=== PATIENT | female | born 1955 | race Caucasian/White ===

== ENCOUNTER 2023-08-01 10:56 | Inpatient (IN) | payer MEDICARE, SELFPAY ==
[2023-08-01] VITALS (16 sets, daily range): BP systolic 136–189; BP diastolic 73–98
[2023-08-01 08:12] LABS: % Basophils 0.8 % (0-2); % Eosinophils 2.5 % (0-6); % Immature Granulocytes 0.2 % (0-0.5); % Lymphocytes 52.2 % (20.5-51.1); % Monocytes 7.1 % (1.7-9.3); % Neutrophils 37.2 % (42.2-75.2); Absolute Basophils 0.1 10^3/uL (0-0.2); Absolute Eosinophils 0.2 10^3/uL (0-0.7); Absolute Lymphocytes 3.1 10^3/uL (1.2-3.4); Absolute Monocytes 0.4 10^3/uL (0.1-0.6); Absolute Neutrophils 2.2 10^3/uL (1.4-6.5); Hematocrit 37.1 % (37.0-47.0); Mean Corpuscular Hgb 30.6 pg (27.0-31.0); Mean Corpuscular Volume 87.3 fL (81.0-99.0); Mean Platelet Volume 8.8 fL (7.4-10.4); Nucleated Red Blood Cells % 0 %; Platelet Count 206 10^3/uL (130-400); Red Blood Cell Count 4.25 10^6/uL (4.20-5.40); White Blood Cell Count 5.9 10^3/uL (4.8-10.8)
[2023-08-01 08:26] LABS: ALT (SGPT) 33 U/L (0-35); AST (SGOT) 39 U/L (14-36); Albumin 4.6 g/dl (3.5-5.0); Alkaline Phosphatase 103 U/L (38-126); Blood Urea Nitrogen 15 mg/dl (7-17); Calcium 8.9 mg/dl (8.4-10.2); Carbon Dioxide 26 mmol/L (22-30); Chloride 106 mmol/L (98-107); Glucose 140 mg/dl (70-99); Potassium 4.1 mmol/L (3.5-5.1); Sodium 137 mmol/L (135-145); Total Bilirubin 1.3 mg/dl (0.2-1.3); Total Protein 7.6 g/dl (6.3-8.2); eGFR > 60.00
--- NOTE | 2023-08-01 08:31 | ED.GENMED ---
History of Present Illness
General
Chief Complaint: Weakness
Source: patient and family
Exam Limitations: none
Time Seen by Provider: 08/01/23 08:04
Travel History
Have you had any contact with someone who has COVID-19?: No
Do you have any symptoms of coronavirus? Fever > 100 degrees, chills, cough, shortness of breath, sore throat, loss of taste or smell, muscle aches, or headache?: No
History of Present Illness
History of Present Illness:
67-year-old female started with dizziness weakness generalized in nature some mild speech issues yesterday. However upon waking this morning symptoms were worse. Symptoms are nonfocal. No history of same. No one else is ill at home.
Past History
Past History
ED Past Medical History: GERD, Hypercholesterolemia and Other
ED Past Surgical History: Gynecological
Social History
Tobacco: Non-smoker
Alcohol: None
Personal:
Living: with family
Family History
Family History: Other
Review of Systems
Review of Systems
All Other Systems: Not applicable
Constitutional: Denies fever
Respiratory: Reports no symptoms
Cardiac: Reports no symptoms
ABD/GI: Denies abdominal pain
Phy Exam
Physical Exam
Physical Exam:
GENERAL: Alert and oriented. Generally weak appearing
EYE: Orbits normal. Extraocular muscles intact. No obvious nystagmus
NECK: Supple, no carotid bruit
ENT: Pharynx without erythema. No drooling or stridor
CARDIAC: Regular rate and rhythm without any obvious murmurs.
LUNGS: Clear breath sounds,normal
ABDOMEN: Soft, without focal tenderness or distention
NEUROLOGICAL: Alert and oriented , thank you generally weak. Will lift both arms up but drops both arms after a few seconds. Questionable increasing drift on the right arm. The same with both lower extremities. Light touch intact. [id number]
okay. Speech is moderately slurred
SKIN: Warm and dry, no rash or lesion, no discoloration, skin intact.
MUSCULOSKELETAL: No edema,no deformity.Good color
PSYCH: Normal and appropriate interaction.
Course
Orders/Labs/Results
Orders:
Orders
08/01/23 08:05
Complete Blood Count/With Diff Urgent
Comprehensive Metabolic Panel Urgent
Erythrocyte Sed Rate Urgent
Comment: ADD ON
Ferritin Urgent
Comment: ADD ON
Folate Urgent
Comment: ADD ON
TSH Reflex To Free T4 Urgent
Comment: ADD ON
Troponin I Urgent
Vitamin B12 Urgent
Comment: ADD ON
08/01/23 08:13
Electrocardiogram (*1) Stat
Reason for Study: Other
Other Reason for Exam: neuro symptoms
CT Head W/o Iv Contrast Urgent
Comment:
Reason For Exam: slurred speech. weakness
Cardiac Monitoring- Treatment ONCE
EKG- Treatment ONCE
IV Insert/Care/Rem.- Treatment PRN
Pulse Ox/cont/shift [RESP] Stat
Quantity: 1
08/01/23 08:42
Add On- LAB Urgent
Tests Added?: tsh reflex t4, esr
NEUROLOGY CONSULT Urgent
Consulting Provider: Heber Mayer
Was physician already notified: Yes
08/01/23 09:11
Aspirin Chewable [Low Strength Aspirin] 324 mg PO NOW STA
08/01/23 09:58
Urinalysis Reflex To Culture Urgent
Date Specimen was Collected: 08/01/23
Time Specimen was Collected: 09:57
Urine Microscopic Reflex Cult Urgent
Urine Culture Urgent
LUCIA Source: U
Specimen Description:
Date Specimen was Collected: 08/01/23
Time Specimen was Collected: 09:57
08/01/23 10:37
Admit/Transfer Patient As Directed
Co-Sign Provider:
Level of Care: Inpatient admission
Assign to:: Telemetry
Physician / Group: Elias Parker
Diagnosis: ataxia/nausea, possible CVA
Reason for Telemetry: CVA/TIA
Date to Stop Telemetry: 08/04/23
Time to Stop Telemetry: 11:00
Reason for Hospitalization: ataxia/nausea, possible CVA
Expected length of stay greater than two midnights?: Yes
ELOS- Estimated Length of Stay in days: 2
I certify the patient meets the requirements for IP care: Yes
08/01/23 10:38
Code Status As Directed
Resuscitation Status: Full Code
08/01/23 10:51
Ketorolac [Toradol] 15 mg IV NOW STA
08/01/23 11:11
Ondansetron Injectable [Zofran] 4 mg IV Q6HPRN PRN
08/01/23 11:11
Swallow Screening CVA/TIA ONLY As Directed
Comment: NPO until swallowing screening completed
If patient FAILS swallow screening:: NPO, Speech Therapy consult, Aspiration Precautions
If patient PASSES swallow screening, diet:: 2000 fan/ 17 CHO Diabetic
08/04/23 11:00
DC Protocol for Telemetry ONCE
Abnormal Lab Results
08/01/23 08/01/23
08:05 09:58
Neutrophils % 37.2 L %
(42.2-75.2)
Lymphocytes % 52.2 H %
(20.5-51.1)
Glucose 140 H mg/dl
(70-99)
AST 39 H U/L
(14-36)
Ur Occult Blood Reflex 2+ A
(Negative)
Leukocyte Esterase Rfl 1+ A
(Negative)
Urine RBC 3-6 A /HPF
(0-2)
08/01/23 08:05
08/01/23 08:05
Vital Signs
Initial and Last Documented VS:
Initial Vital Signs
BP
169/90
08/01/23 07:52
Last Documented Vital Signs
Temp Pulse Resp BP Pulse Ox
98.1 F 68 18 149/85 97
08/01/23 07:55 08/01/23 11:30 08/01/23 11:30 08/01/23 11:00 08/01/23 11:30
*Radiology
Radiology exam reviewed: radiology read reviewed (neg)
*Pulse Oximetry
Patient hypoxic: no
*EKG
Interpreted by ED Provider?: Yes
Interpretation: normal
Comparison EKG: no changes
Heart Rate: 69
Rate: normal
Rhythm: sinus
B[place]on: normal axis
Interval: normal interval
QRS Pattern: normal QRS
Ischemia: non-specific ST changes
*Copy Editor Interpretation
Rate: normal
Interpretation: normal
Heart Rate: 66
Rhythm: sinus
*Critical Care Note
Total Time (30-74mins, 75-104mins- exclusive of procedures): Not Applicable
Update Note
Update Note:
Upon exiting the room I asked her to go to CT right away. Stroke is in differential although if this is a CVA this started yesterday. Nonfocal in nature however. Discussed with neurology who will evaluate.
909... Patient rechecked. Clinically stable. Remains nonfocal but generally weak. Speech was reassessed and she definitely has some slurred speech and mild aphasia. Again reviewed history with family as stated this all started yesterday. Out
of the window for any acute intervention.
ED Attending Note
-
Portions of this chart may have been created with voice recognition software.� Occasional wrong word or��sound alike� substitutions may have occurred due to the inherent limitations of voice recognition software.
Discharge Plan
Departure
Patient Disposition: Admit
Date of Disposition: 08/01/23
Time of Disposition: 09:12
Presentation/result/management discussed w/ accepting MD/DO: Neurology
Discharge Problem:
Disequilibrium/mild expressive aphasia, General weakness
Interventions
Interventions:
*Risk Screen - Suicide Last Done: 08/01/23 08:01
*General Assessment Last Done: 08/01/23 08:00
*Neglect/Abuse Screening Last Done: 08/01/23 08:01
ED- Fall Risk Assessment Last Done: 08/01/23 10:03
*ED COVID-19 Vaccine History Last Done: 08/01/23 07:59
ED- Cardiac Assessment Last Done: 08/01/23 08:01
ED- Neurological Assessment Last Done: 08/01/23 09:16
ED- Pulmonary Assessment Last Done: 08/01/23 08:01
[2023-08-01 08:37] LABS: Troponin I < 0.012 ng/ml
[2023-08-01] MEDS: LOW STRENGTH ASPIRIN 324 MG PO (09:16)
--- NOTE | 2023-08-01 09:50 | CON.NEURO ---
Neuro Assessment/Plan
Assessment
IMPRESSIONS/RECOMMENDATIONS:
Abrupt onset of dizziness, speech changes, nausea in a patient with long-term migraine without aura (transformed migraine, status migrainosus)
Now likely having migraine with aura which may be induced by HTN
Plan
agree to check MRI of brain with and without
Check MRA head and neck
check blood work for metabolic causes
provide Rizatriptan for migraine rescue
goal of mild HTN until after MRI of brain
symptomatic relief for dizziness
Would provide patient with routine medication for blood pressure control which may also be of assistance for the patient's chronic daily headache
Will continue to follow patient.
Consultation
Order
Date of Consultation: 08/01/23
Requesting Provider: Hospitalists
Reason for Consult: Dizziness
Subjective/Objective
Subjective Data
Date of Service: August 01, 2023
Right-Handed
Patient presented to this hospital's emergency department with greater than 18 hours of generalized symptoms including weakness and dizziness worsening upon awakening today.
All symptoms (developed nausea, balance problem and dizziness) where sudden acute onset yesterday morning when patient woke up.� Patient initially was feeling dizzy with room spinning around.� Associated with bilateral temporal headache throbbing in
nature.� Patient took Advil/Tylenol without much help.� Denied of having previous history of vertigo.� No history of hearing loss.
Yesterday's bedtime night before symptom onset was 19:00, awoke with symptoms 04:30 yesterday morning. Symptoms lasted all day with worsening of head spinning.
No headache yesterday, started on awakening this AM. Located posteriorly, intensity 4/10, photophobia present, with associated sense of mental lack of clarity. No weakness, sensation changes.
Headache: Daily for years with near daily OTC medication, does have photophobia, phonophobia, not nausea, not emesis. No other known modifying factors with exception of medications provided in the emergency department have improved symptoms.
Objective Data
Vital Signs
Temp Pulse Resp BP Pulse Ox
36.7 C 68 13 159/82 92
08/01/23 07:55 08/01/23 09:00 08/01/23 09:00 08/01/23 08:00 08/01/23 09:00
Lab Results
08/01/23 08:05
08/01/23 08:05
Sodium 137 mmol/L (135-145) 08/01/23 08:05
Potassium 4.1 mmol/L (3.5-5.1) 08/01/23 08:05
BUN 15 mg/dl (7-17) 08/01/23 08:05
Glucose 140 mg/dl (70-99) H 08/01/23 08:05
Calcium 8.9 mg/dl (8.4-10.2) 08/01/23 08:05
Patient Allergies
NKA - No Known Allergies Allergy (Severe, Uncoded 05/19/18 12:47)
Unknown
CVA Assessment
Onset of Stroke Symptoms
Onset of symptoms known: No
Date of onset of symptoms: 07/31/23
Time of onset of symptoms: 04:30
Time pt last seen normal is known: Yes
Date last time pt seen normal: 07/30/23
Time last time pt seen normal: 19:00
NIH Stroke Score
Level of Consciousness: 0 - Alert
LOC Questions: 0-Answers both correctly
LOC Commands: 0-Performs both correctly
Best Horizontal Gaze: 0-Normal
Visual Flores: 0=Normal, no visual loss
Facial Palsy: 0=Normal, symmetrical
Motor - Right Arm: 0=No drift 10 seconds
Motor - Left Arm: 0=No drift 10 seconds
Motor - Right Le-No drift 5 seconds
Motor - Left Le-No drift 5 seconds
Limb Ataxia: 0-Absent
Sensation: 0-Normal
Best Language: 0-No aphasia
Dysarthria: 0-Normal
Extinction and Inattention: 0-No abnormality
Total Score:: 0
Tenecteplase Contraindications
Inclusion and Exclusion criteria reviewed: Yes
IAT Contraindications: NIHSS < 6
Review of Systems
-
Unable to obtain full review of systems at this time due to: Language Barrier
History Source: Patient and Family
All other systems: Reviewed and negative
EENT: Negative Decreased Vision or Swallowing Difficulty
Respiratory: Trouble Breathing
Cardiac: Chest Pain
Abdomen/GI: Negative Incontinence of Stool
Genitourinary: Negative Incontinence
Musculoskeletal: Back Pain and Neck Pain (years)
Neuro: Headache; Negative Dizzy
Physical Exam
-
General: No Apparent Distress and Appears Stated Age
Eyes: OU Absent Papilledema, Round OU, Magnolia Conjunctivae and No Ptosis
HEENT: Anicteric and Moist Mucous Membranes
Neck: Full Range of Motion
Respiratory: No Dyspnea
Cardiac: No JVD
GI: Non-distended
Skin: Unremarkable
Extremities: No Clubbing, No Cyanosis and No Edema
Psych: Intact Judgement/Insight
Extended Neurological Exam
Mood & Affect: Negative Affect Unremarkable (Somatic)
Attention Span & Concentration: Awake, Alert, Interactive and No Difficulty with 2 Step Request
Memory: Unremarkable
Tremor: Hand Tremor Absent and Head Tremor Absent
Speech: Quality Unremarkable, Quantity Unremarkable and Other (Patient's son who is the spanish interpreter/translator, suggested the patient has mild dysarthria not clearly detectable by this interviewer)
Cranial Nerve II: Left Eye: Pupillary Reactivity Unremarkable, Pupillary Size Unremarkable and Visual Flores Intact
Cranial Nerve II: Right Eye: Pupillary Reactivity Unremarkable, Pupillary Size Unremarkable and Visual Flores Intact
Cranial Nerves III, IV, : Extraocular Movement: Extraocular Movement Full in all Directions
Cranial Nerve VII: Facial Symmetry: Normal Facial Symmetry
Cranial Nerve VIII: Hearing: Unremarkable Hearing to Normal Conversational Volume
Cranial Nerves IX, X: Palate Movement: Palate Elevation Symmetric
Cranial Nerve XI: Shoulder Shrug: Unremarkable
Cranial Nerve XII: Tongue Protusion: Midline
Muscle Strength, Overall: Full Throughout
Muscle Bulk & Tone: Bulk Unremarkable and Tone Unremarkable
Pronator Drift: No Drift in Upper Extremities
Deep Tendon Reflexes: Trace Throughout
Touch Sensation: Unremarkable
Coordination: [id number] Testing Unremarkable
Babinski Sign: Absent Bilaterally
Data Reviewed
-
CT Head: Report Reviewed
Labs: Ordered and Report Reviewed
Reviewed with: Physician, Patient and Family
Old Records: Summarized
Medications
-
Home Medications
Medication Instructions Recorded
fenofibrate 160 mg tablet 160 mg PO DAILY 05/19/18
ondansetron 4 mg disintegrating 4 mg PO TIDPRN PRN nausea/vomiting 05/19/18
tablet #10 tabs
simvastatin 40 mg tablet 40 mg PO HS 05/19/18
Past History
Past History
ED Past Medical History: GERD, HTN, Hypercholesterolemia and Other (Arthritis, Lyme disease (2019))
ED Past Surgical History: Gynecological (Hysterectomy)
Social History
Tobacco: Non-smoker
Alcohol: None
Personal:
Living: with family
Family History
Family History: Other (Reviewed and noncontributory)
[2023-08-01 09:51] LABS: TSH Reflex To Free T4 2.33 uIU/ml (0.47-4.68)
[2023-08-01 10:12] LABS: Urine Albumin Trace (Neg - Trace); Urine Bilirubin Negative (Negative); Urine Character Clear (Clear); Urine Color Yellow; Urine Glucose Negative (Negative); Urine Ketone Negative (Negative); Urine Leukocyte 1+ (Negative); Urine Nitrite Negative (Negative); Urine Occult Blood 2+ (Negative); Urine Specific Gravity 1.015 (<1.030); Urine Urobilinogen Negative (Neg - 1+)
--- NOTE | 2023-08-01 10:41 | HPS.HSE ---
Family Physician
-
Family Physician: NOT KNOW UNKNOWN - PT DOES
Chief Complaint
-
Dizziness/nausea/balance problem
History of Present Illness
Patient is 67-year-old female with past medical history of hyperlipidemia, non-insulin diabetes mellitus came to ER for having new onset of nausea, balance problem and dizziness. All symptoms where sudden acute onset yesterday morning when patient
woke up. Patient initially was feeling dizzy with room spinning around. Associated with bilateral temporal headache throbbing in nature. Patient took Advil/Tylenol without much help. Denied of having previous history of vertigo. No history of
ear infections/ear injury hearing loss. Associated with that patient was having difficult time walking around with balance problem. No reported fall. Also had some nausea without vomiting and patient did not eat much food. Patient slept with the
symptoms tonight and woke up with persistent issues and came to ER for further evaluation. Patient does not speak Turkmen and son at bedside helping with history gathering.
Patient does have history of hyperlipidemia [id number] diabetes mellitus, takes small dose of medication name unknown. No previous history of any vascular problems/coronary disease. Patient is non-smoker nonalcoholic. No other tobacco
products used in the past.
Medical History
Past Medical History
Past Medical History: Reports Other
Additional Past Medical History:
HLD, NIDDM, Essential HTN
Past Surgical History: Reports Other
Social History
Tobacco: Non-smoker
Alcohol: None
Drug: None
Personal:
Living: With Family
Family History
Family History: Not pertinent
Allergies / Home Medications
Allergies reflects when Allergies were last updated in [facility].
Home Medications with original date entered in [facility]
Allergy/Medication List:
Allergies
Allergy/AdvReac Type Severity Reaction Status Date / Time
NKA - No Known Allergies Allergy Severe Unknown Uncoded 05/19/18 12:47
Home Medications
fenofibrate 160 mg tablet 160 mg PO DAILY 05/19/18
ondansetron 4 mg disintegrating tablet 4 mg PO TIDPRN PRN nausea/vomiting #10 tabs 05/19/18
simvastatin 40 mg tablet 40 mg PO HS 05/19/18
Review of Systems
-
Unable to obtain full review of systems at this time due to: Language Barrier
History Source: Family
A 12 point ROS was completed and negative except as noted: Yes
Physical Exam
Vital Signs
Vital Signs
Temp Pulse Resp BP Pulse Ox
98.1 F 71 19 173/74 97
08/01/23 07:55 08/01/23 10:01 08/01/23 10:01 08/01/23 10:01 08/01/23 10:01
Physical Exam
General: No Apparent Distress
HEENT: No Oxygen
Respiratory: Clear
Cardiac: S1/S2 and Regular Rhythm; No Murmur or Rub
GI: Soft, Non Tender and Non Distended; No Organomegaly
Musculoskeletal: No Clubbing and No Cyanosis
Skin: No Rash
Neuro: Awake, Alert, Oriented and Nonfocal/grossly intact
Laboratory Results
-
08/01/23 08:05
08/01/23 08:05
Laboratory Results
Total Bilirubin 1.3 mg/dl (0.2-1.3) 08/01/23 08:05
AST 39 U/L (14-36) H 08/01/23 08:05
ALT 33 U/L (0-35) 08/01/23 08:05
Alkaline Phosphatase 103 U/L (38-126) 08/01/23 08:05
Troponin I < 0.012 ng/ml 08/01/23 08:05
Data Reviewed
-
CT Scan: Image Personally Visualized and interpreted, Report Reviewed by me and Discussed with Family
Lab Data: Labs Reviewed by me and Discussed with Family
Impression/Plan
-
1. Ataxia/dizziness
Rule out CVA vs vertigo
-Acute onset of symptoms patient woke up yesterday morning with symptoms.
-CT head negative without any criminality
-MRI brain without contrast and MRI ordered
-No loss of motor strength or sensory changes on exam. No nystagmus.
-If MRI brain negative potential differential is vertigo
-Giving Valium 2 mg as needed for symptomatic care
-Patient already got aspirin 325 mg for presumed stroke, maintain on ASA 81mg/d
-Check lipid profile/A1c
-PT OT ST eval
-Neurology consulted in ER.
2. Hypertensive urgency
-Medical section pending although no previous diagnosis of hypertension
-Patient woke up with symptoms yesterday morning and out of permissive hypertension window
-starting small dose losartan for Bp control with PRN hydralazine
3. HLD
-Continue home dose of simvastatin, med rec pending for dose confirmation
4. NIDDM
- matinain on diabetic diet with ISS once clears ST eval
DVTPPX -scd
Full code
Total time spent : 78 mins
I personally saw and examined the patient.
I have reviewed all diagnostic interpretations and treatment plans as written.
Time includes patient management by me, time spent at the patients bedside, time to review lab and imaging results, discussing patient care, documentation in the medical record, and time spent with the family or caregiver and discussing care plan
with RN/Consultants.
[2023-08-01] MEDS: TORADOL 15 MG IV (11:10)
[2023-08-01] MEDS: ZOFRAN 4 MG IV (11:14)
[2023-08-01] MEDS: MAXALT MLT (ORALLY DISINTEGRATING) 10 MG PO ×2 (12:27→21:23)
[2023-08-01 12:46] LABS: Erythrocyte Sed Rate 6 mm/hour (0-20)
--- NOTE | 2023-08-01 13:07 | EDRN ---
Pt with family at bedside, reports headache relief and improvement with speech. Family members helped pt to bathroom. Awaiting bed assignment.
[2023-08-01 13:49] LABS: Folate 15.5 ng/ml (2.76-20); Vitamin B12 766 pg/ml (239-931)
--- NOTE | 2023-08-01 16:29 | PTCARENOTE ---
Patient admitted to room 434-2. AAOx3, primary language Sami--but speaks basic Faroese. NIH 6 for RUE AND RLE weakness. Mild R facial droop noted. Patient also with clumsy nose to finger task with RUE. Dr. Mayer/Dr. Parker notified of findings.
Will continue to monitor.
[2023-08-01 17:02] LABS: Glucose - Point of Care 116 mg/dl (70-99)
[2023-08-01] MEDS: COZAAR 25 MG PO (17:03)
[2023-08-01] MEDS: NOVOLOG FLEXPEN-LOW RESISTANCE SC (17:05)
--- NOTE | 2023-08-01 18:50 | PTCARENOTE ---
Weakness to RUE and RLE worsening. Patient also reports new numbness to R cheek. NIH now noted to be an 8. Dr. Mayer updated and patient for STAT CT.
--- NOTE | 2023-08-01 19:00 | PTCARENOTE ---
Was receiving report on other patients when ashish LIMON notified me that Mrs Garcia's NIH was worsening. Had not received any other report on her yet. Ashish LIMON had said she notified neurologist about change who placed order for CT scan. Went in to
assess patient and per patients son who was bedside her right sided weakness had significantly worsened, had numbness and tingling on that side, pt was more confused and had visual changes. NIH preformed, patient had an NIH of 14 at this point, see
NIH charting in work list.
Rapid response called for stroke alert because per the brief report given, pts NIH was a [address] Nevarez note at 1515 and had only progressively gotten worse, a 5 in ED, a 6 then 8 on floor, and now a 14. Patients vital signs obtained, EKG
obtained, blood sugar checked, CLERK ENTRY LEVEL's, PURCHASING ASSOCIATE, nursing preparation supervisor freezing all given a verbal report of situation. Patient sent to CT scan and then per Dr Mayer, upgraded to ICU.
--- NOTE | 2023-08-01 19:00 | RR ---
Advancing [facility]---A Rapid Response was called on this patient, please see Rapid Response form.
[2023-08-01 19:11] LABS: Glucose - Point of Care 136 mg/dl (70-99)
--- NOTE | 2023-08-01 19:52 | W.PN.UPDATE ---
Update Note
Progress Note Update
Notified that patient has had new onset of right UE and RLE weakness.
Stroke Alert called.
Ordered CT-Perfusion and CT-Angiogram.
Plan:
CT-P and CT-A to my review don't show abnormalities suggestive of either migraine with aura or somatization disorder.
Still should have confirmatory MRI of brain
Reviewed with nursing staff, HOOKER OPERATOR, covering Hospitalist
Will follow.
--- NOTE | 2023-08-01 20:07 | PTCARENOTE ---
cannot verify vital signs crossed over prior to 1999.
--- NOTE | 2023-08-01 20:09 | W.PN.UPDATE ---
Update Note
Progress Note Update
08/01/23
1999- Patient arrived from the floor after rapid/stroke alert was called for worsening NIHSS 12 for mild aphasia, right arm weakness 3/5 and right leg weakness 3/5, visual deficit hemianopsia (right visual field cut), and right arm ataxia. She has
had a headache intermittently, severe dizziness, and photophobia with waxing and waning neurological symptoms with weakness on the right side with complete resolution of weakness throughout the day. Ctscan and CTA negative for neurological
findings. SBP currently 160s-170s. Discussed case with Dr. Mayer, neurologist, examination history and findings and neuro imaging not supportive of stroke or vasospasm. Neuro imaging was reviewed by Dr. Mayer and radiologist Dr. Can.
Diagnosis at this time complex migraine vs somatization. Son admitted his mother has been stressed because his sister had been fighting with his parents and recently moved to [place] out of the area which has been stressful on his mother, she has
been having headaches. Will treat for complex migraine with migraine cocktail: benadryl 50mg IV, compazine IV, and maxalt 10mg PO; she may require additional medication throughout the night if headache is refractory. For hypertension will give
labetolol 10mg IV now.
Reviewed plan of care with nursing. Patient when using the bedpan was able to with normal effort 5/5 strength lift her right leg to use the bedpan around 9pm.
[2023-08-01] MEDS: TRANDATE 10 MG IV (21:23)
[2023-08-01] MEDS: COMPAZINE 10 MG IV (21:23)
[2023-08-01] MEDS: BENADRYL 50 MG IV (21:23)
[2023-08-01] MEDS: LIPITOR 20 MG PO (21:31)
--- NOTE | 2023-08-01 22:04 | PTCARENOTE ---
ALLOCATIONS CLERK/stroke alert called ~191 for worsening stroke symptoms - R sided weakness, aphasia, field cut, ataxia. NIH = 14. Taken to CT scan as ordered. Mostly Hungarian speaking but does communicate some in Salvadorean. Son at bedside able to translate and
reported some confusion and mild slurring of speech. Reassessment ~1999 NIH = 12. Discussed with ANNALISE Avalos who spoke with neuro- concern for complex migraine so benadryl/compazine/maxalt ordered and given. SR on tele, HR 60s-80s. Hypertensive-
one dose labetalol ordered by WOOD FENCE ERECTOR. On RA, lungs CTA. + bowel sounds. Took pills whole with h20 without difficulty. Voided on bedpan yellow urine. Skin c/d/i. L AC #20 patent and capped. Monitoring closely.
While doing NIH scale, pt. reports unable to lift R arm and leg off bed. However, when placing pt on bedpan and observing pt, she is moving R leg and arm more freely, bending knee and moving leg off the bed. WOOD FENCE ERECTOR aware.
--- NOTE | 2023-08-01 22:05 | PTCARENOTE ---
AUDITING CODER/stroke alert called ~191 for worsening stroke symptoms - R sided weakness, aphasia, field cut, ataxia. NIH = 14. Taken to CT scan as ordered. Son reported some confusion and mild slurring of speech. Reassessment ~1999 NIH = 12. Discussed with
ANNALISE Avalos who spoke with neuro- concern for complex migraine so benadryl/compazine/maxalt ordered and given. SR on tele, HR 60s-80s. Hypertensive- one dose labetalol ordered by ANNALISE. On RA, lungs CTA. + bowel sounds. Took pills whole with h20
without difficulty. Voided on bedpan yellow urine. Skin c/d/i. L AC #20 patent and capped. Monitoring closely.
While doing NIH scale, pt. reports unable to lift R arm and leg off bed. However, when placing pt on bedpan and observing pt, she is moving R leg and arm more freely, bending knee and moving leg off the bed. CLAY PROCESSING FACTORY WORKER aware.
[2023-08-01 23:42] LABS: Glucose - Point of Care 167 mg/dl (70-99)
[2023-08-02] VITALS (26 sets, daily range): BP systolic 93–155; BP diastolic 52–96; PULSE 68; O2SAT 95; BMI 20.9
--- NOTE | 2023-08-02 02:36 | W.PN.UPDATE ---
Update Note
Progress Note Update
1919 responded to CLERICAL SPECIALIST /stroke alert for significant change to NIH
reviewing chart NIH by neuro at aprox 10 am =0, on admit to unit (1600) =6, shortly before rapid increased to 14
Dayshift RN was already in touch with Neurology prior to rapid who ordered CTA head and neck and cerebral perfusion
At bedside pt alert. provider difficult to assess NIH due to pt getting iv for CTA, labs and EKG. Info received from RN regarding NIH score of 14
Pt then sent for stat CT head
Spoke with Dr Mayer neuro inspector conveyor line-- he will review CTA and cerebral perfusion study when ready, baed on significant change to NIH, recommend transfer to ICU for possible TNK.
Orders followed through.
NIH Stroke Score
Subsequent NIH Scale
Date of Subsequent NIH Scale: 08/01/23
Time of Subsequent NIH Scale: 19:15
NIH Stroke Score
Level of Consciousness: 0 - Alert
LOC Questions: 2-Neither correct
LOC Commands: 0-Performs both correctly
Best Horizontal Gaze: 1-Partial gaze palsy
Visual Flores: 1=Partial hemianopia
Facial Palsy: 1=Minor paralysis
Motor - Right Arm: 2=Partial vs. gravity
Motor - Left Arm: 0=No drift 10 seconds
Motor - Right Le-Partial vs. gravity
Motor - Left Le-No drift 5 seconds
Limb Ataxia: 2-Present in two limbs
Sensation: 1-Mild loss
Best Language: 1-Mild aphasia
Dysarthria: 1-Mild slurring
Extinction and Inattention: 0-No abnormality
Total Score:: 14
[2023-08-02 04:04] LABS: Hemoglobin 13.2 g/dL (12.0-16.0); Mean Corp Hgb Conc. 34.7 g/dL (33.0-37.0); Mean Corpuscular Hgb 30.6 pg (27.0-31.0); Mean Corpuscular Volume 88.2 fL (81.0-99.0); Mean Platelet Volume 9.3 fL (7.4-10.4); Platelet Count 224 10^3/uL (130-400); Red Blood Cell Count 4.31 10^6/uL (4.20-5.40); Red Cell Dist. Width 12.1 % (11.5-14.5); White Blood Cell Count 7.2 10^3/uL (4.8-10.8)
[2023-08-02 04:14] LABS: INR 1.02; PT 13.2 Sec (11.4-14.6)
[2023-08-02 04:15] LABS: APTT 32.1 Sec (23.4-35.0)
[2023-08-02 04:31] LABS: Blood Urea Nitrogen 19 mg/dl (7-17); Calcium 9.3 mg/dl (8.4-10.2); Carbon Dioxide 23 mmol/L (22-30); Chloride 106 mmol/L (98-107); Estimated Creatinine Clearance 54 ml/min; Glucose 132 mg/dl (70-99); HDL Cholesterol 59 mg/dl; LDL Cholesterol, Calculated 154 mg/dl; Magnesium 2.2 mg/dl (1.6-2.3); Potassium 4.5 mmol/L (3.5-5.1); Sodium 137 mmol/L (135-145); Total Cholesterol 250 mg/dl (50-199); Triglyceride 189 mg/dl (10-149); Very Low Density Lipoprotein 37 mg/dl (0-30); eGFR > 60.00
--- NOTE | 2023-08-02 05:20 | PTCARENOTE ---
Pt. reassessed. Has been sleeping since administration of meds for migraine last night. When awoken, pt seems groggy but able to follow commands and make needs known. Speech slurred at times but not always. Only complaint is being 'sleepy.' No
headache per pt. BP dipped to 90s/50s but most recently 138/59. COUNT TEAM MEMBER aware. Pt. not moving R arm much when asked to during neuro exam but seem pt. reposition blankets on her own using arm. AM labs sent
[2023-08-02] MEDS: COZAAR 25 MG PO (07:41)
[2023-08-02] MEDS: LOW STRENGTH ASPIRIN 81 MG PO (07:41)
[2023-08-02] MEDS: NOVOLOG FLEXPEN-LOW RESISTANCE SC ×3 (07:44→17:59)
[2023-08-02 07:55] LABS: Glucose - Point of Care 141 mg/dl (70-99)
--- NOTE | 2023-08-02 08:09 | W.PN.NEURO.1 ---
Today's Communication / Plan
-
-Goal normotension
-Continue aspirin
-NIH and neurologic checks
-Symptomatic treatment of headache with migraine focused medications
-Check MRI of the brain and cervical spine without contrast
Will follow
Neuro Assessment/Plan
Assessment
IMPRESSIONS/RECOMMENDATIONS:
Abrupt onset of dizziness, speech changes, nausea in a patient with long-term migraine without aura (transformed migraine, status migrainosus)
Now likely having migraine
Worsened right sided weakness
Ddx: Ischemic stroke on left subcortical area, migraine with motor aura/complicated migraine, functional neurologic disorder
Subjective/Objective
Subjective Data
Date of Service: August 02, 2023
Patient has had improvement in headache, no nausea, remains with right arm and leg weakness
Objective Data
Vital Signs
Temp Pulse Resp BP Pulse Ox
97.7 F 68 13 104/59 96
08/02/23 07:29 08/02/23 07:45 08/02/23 07:45 08/02/23 07:00 08/02/23 07:50
Lab Results
08/02/23 03:19
08/02/23 03:19
PT 13.2 Sec (11.4-14.6) 08/02/23 03:19
INR 1.02 08/02/23 03:19
APTT 32.1 Sec (23.4-35.0) 08/02/23 03:19
Sodium 137 mmol/L (135-145) 08/02/23 03:19
Potassium 4.5 mmol/L (3.5-5.1) 08/02/23 03:19
BUN 19 mg/dl (7-17) H 08/02/23 03:19
Glucose 132 mg/dl (70-99) H 08/02/23 03:19
Calcium 9.3 mg/dl (8.4-10.2) 08/02/23 03:19
LDL Cholesterol, Calc 154 mg/dl 08/02/23 03:19
Vitamin B12 766 pg/ml (208-931) 08/01/23 08:05
Patient Allergies
NKA - No Known Allergies Allergy (Severe, Uncoded 05/19/18 12:47)
Unknown
Review of Systems
-
History Source: Patient
All other systems: Reviewed and negative
Constitutional: No Symptoms
EENT: No Symptoms Reported
Respiratory: No Symptoms
Cardiac: No Symptoms
Abdomen/GI: No Symptoms
Genitourinary: No Symptoms
Musculoskeletal: No Symptoms
Skin: No Symptoms
Neuro: Weakness
Endocrine: No Symptoms
Hematologic / Lymphatic: No Symptoms
Allergy / Immunology: No Symptoms
Physical Exam
-
General: Comfortable
Eyes: No Ptosis
HEENT: Normocephalic
Neck: No Bruits Bilaterally
Respiratory: Clear to Auscultation
Cardiac: Regular Rhythm
GI: Normal Bowel Sounds
Extremities: No Clubbing
Psych: Negative Confused or Agitated
Extended Neurological Exam
Mood & Affect: Mood Unremarkable and Affect Unremarkable
Attention Span & Concentration: Awake, Alert and Interactive
Memory: Unremarkable
Tremor: Hand Tremor Absent
Involuntary Movement: None
Speech: Quality Unremarkable and Quantity Unremarkable; Negative Expressive Aphasia or Receptive Aphasia
Cranial Nerve II: Left Eye: Pupillary Reactivity Unremarkable, Pupillary Size Unremarkable and Visual Flores Intact
Cranial Nerve II: Right Eye: Pupillary Reactivity Unremarkable, Pupillary Size Unremarkable and Visual Flores Intact
Cranial Nerves III, IV, : Extraocular Movement: Extraocular Movement Full in all Directions
Cranial Nerve VII: Facial Symmetry: Other (Minimal right facial lower weakness)
Muscle Strength, Overall: Other (Right arm drift, shoulder abduction arm flexion 4/5, no collapsing weakness seen, right leg 4/5 hip flexion)
Pronator Drift: Drift in Right Upper Extremity and Drift in Right Lower Extremity
Deep Tendon Reflexes: Trace Throughout
Coordination: [id number] Testing Unremarkable
Data Reviewed
-
CT-A: Report Reviewed and Image Reviewed
CT Head: Report Reviewed and Image Reviewed
MRI Head: Ordered and Pending
MRI Cervical Spine: Ordered and Pending
Labs: Report Reviewed
Lipid Profile: Report Reviewed
--- NOTE | 2023-08-02 08:22 | PTCARENOTE ---
Assumed care of patient. VSS. NIHSS 12. Son at bedside. Able to feed self without assistance. Plan of care discussed.
[2023-08-02 09:27] LABS: Glycohemoglobin (HgbA1c) 7.5 % (4.0-5.6)
[2023-08-02] MEDS: PROTONIX 40 MG PO (10:34)
--- NOTE | 2023-08-02 10:56 | W.PN.INTV ---
Addendum entered and electronically signed by Raul Guevara MD 08/02/23 13:21:
Past medical history:GERD, HTN, Hypercholesterolemia, prior history of hysterectomy, (Arthritis, Lyme disease (2019))
Patient is a never smoker.
Denies history of alcohol abuse.
She lives with family. She is .
Original Note:
Documented by User: Vicki Griffin MD, Resident 08/02/23 12:06
Today's Communication / Plan
Recommendations
MRI pending
Assessment
-
ASSESSMENT:
1.Dizziness/Ataxia
2.Right-sided weakness
3.Hypertension
4.Hyperlipidemia
5.GERD
PLAN:
1. Dizziness/ataxia on admission
�NIH score on admission was 8
� CVA was ruled out, CT head showed no evidence of stroke, not a candidate for alteplase.
- Patient is currently on aspirin 81 mg, after loading dose
2.Right-sided weakness
-Patient was called in for stroke alert yesterday night at 8 PM.
-She had new onset right upper extremity and right lower extremity weakness
�NIH score 14
� CT�PE and CT�A showed no abnormalities
� Neurology consulted�possibility of either migraine with aura/somatization disorder
� Started on Benadryl + Compazine + Maxalt
�MRI pending
3.Hypertension
�Continue losartan, 25 mg
4.Hyperlipidemia
-Continue atorvastatin 20 mg
5.GERD
� H/o reflux, was using ondansetron at home
� Started on pantoprazole 40 mg, daily
Subjective Dataa
Subjective Data
Date of Service:
Date of Service: August 02, 2023
Subjective:
History provided by patient's son because of language barrier.
Patient had a stroke alert called in yesterday night at around 8 PM, underwent CT perfusion and CT angiogram -no evidence of abnormalities, reviewed by the neurologist who suggested it might be migraine with aura/somatization disorder and was
started on migraine cocktail medications.
Patient states that her weakness on the right upper limb and right lower limb has worsened since yesterday night, but her speech has improved since morning. Her headache has improved a lot today, after taking Benadryl, Compazine, Maxalt yesterday
night, patient still has some nausea but no vomiting. No vision abnormality, hearing loss, photophobia. Patient mentioned that she is not able to swallow solid foods, but liquids are okay. Patient reports no chest pain, SOB. Patient underwent
chest x-ray in the morning today for SOB at 6 AM which showed no acute abnormalities. She has some diffuse abdominal pain, since morning, did not have a bowel movement today.
Review of Systems
GI: Nausea
Neuro: Headache and Weakness (Right upper and lower extremity)
Objective Data
Data Reviewed
Vital Signs / I&O / Oxygen:
Vital Signs
Temp Pulse Resp BP Pulse Ox
97.7 F 64 18 140/77 95
08/02/23 07:29 08/02/23 10:30 08/02/23 10:30 08/02/23 10:19 08/02/23 10:03
Intake and Output
08/01/23 08/02/23 08/03/23
06:59 06:59 06:59
Intake Total 250 / 250 500 / 500
Balance 250 / 250 500 / 500
SaO2 95
Physical Exam
General: Comfortable
HEENT: Normocephalic
Cardiovascular: S1-S2
Respiratory: Clear
GI: Soft, Non Distended and Non Tender
Neurology: Awake, Alert, Oriented, AO x 3 and Other (Motor-strength 4/5 right upper and lower extremity, sensations decreased on the right upper and lower extremity, deep tendon reflexes bilateral upper and lower extremities-normal, Cranial nerve
examination-facial asymmetry positive, shoulder shrug unremarkable, no pronator drift,)
Skin: Warm
Labs/Micro/Reports
Lab Data
08/02/23 03:19
08/02/23 03:19
Laboratory Results
08/02/23
03:19
PT 13.2
INR 1.02
APTT 32.1

Documented by User: Raul Guevara MD 08/02/23 13:18
Today's Communication / Plan
Recommendations
I saw and evaluated this patient with resident. I agree with the findings and plan with my corrections and additions.
Abrupt change in neurological status, initially complaining of headache, ataxia subsequently developing right-sided hemiparesis while in the hospital.
Multiple CAT scans including perfusion images did not confirm ischemic a stroke or hemorrhage.
Status post therapy for migraines. Blood pressure and headache had improved.
Continues to have right-sided hemiparesthesia without improvement. Now also complaining of mild difficulty swallowing.
No new abnormalities.
Discussed with neurology: Continue with frequent neurological exams and supportive care.
Patient is going for MRI later today.
If MRI is negative and no further evaluation recommended, will consider transfer back to telemetry later today.
Assessment
-
ASSESSMENT:
67-year-old woman with past medical history noted. Transferred to the critical care unit for abrupt change in neurological status. Mainly right hemiparesis associated with headaches.
1.Dizziness/Ataxia
2.Right-sided weakness
3.Hypertension
4.Hyperlipidemia
5.GERD
PLAN:
1. Dizziness/ataxia on admission
�NIH score on admission was 8
� CVA was ruled out, CT head showed no evidence of stroke, not a candidate for alteplase.
- Patient is currently on aspirin 81 mg, after loading dose
2.Right-sided weakness
-Patient was called in for stroke alert yesterday night at 8 PM.
-She had new onset right upper extremity and right lower extremity weakness
�NIH score 14
� CT�PE and CT�A showed no abnormalities
� Neurology consulted�possibility of either migraine with aura/somatization disorder
� Started on Benadryl + Compazine + Maxalt
�MRI pending
3.Hypertension
�Continue losartan, 25 mg
4.Hyperlipidemia
-Continue atorvastatin 20 mg
5.GERD
� H/o reflux, was using ondansetron at home
� Started on pantoprazole 40 mg, daily
Subjective Dataa
Subjective Data
Subjective:
Consult requested by Dr. Parker on 08/02/2023.
History provided by patient's son because of language barrier.
Patient had a stroke alert called in yesterday night at around 8 PM, underwent CT perfusion and CT angiogram -no evidence of abnormalities, reviewed by the neurologist who suggested it might be migraine with aura/somatization disorder and was
started on migraine cocktail medications.
Patient states that her weakness on the right upper limb and right lower limb has worsened since yesterday night, but her speech has improved since morning. Her headache has improved a lot today, after taking Benadryl, Compazine, Maxalt yesterday
night, patient still has some nausea but no vomiting. No vision abnormality, hearing loss, photophobia. Patient mentioned that she is not able to swallow solid foods, but liquids are okay. Patient reports no chest pain, SOB. Patient underwent
chest x-ray in the morning today for SOB at 6 AM which showed no acute abnormalities. She has some diffuse abdominal pain, since morning, did not have a bowel movement today.
Objective Data
Physical Exam
Neurology: Other (Language barrier, son at the bedside helping with translation.)
--- NOTE | 2023-08-02 11:34 | W.PN.HOSP.TC ---
Today's Communication/Plan
-
MR brain pending
PT/OT/ST
neuro recs
can tx out of ICU pendign MR results
Assessment / Plan
Assessment / Plan
#Ataxia/dizziness/R sided weakness -Rule out CVA vs complex migraine
-CT head negative without any acute pathology
-Overnight Stroke alert- CT perfusion studies and CTA negative.
-MRI brain ordered/pending
-Patient already got aspirin 325 mg for presumed stroke, maintain on ASA 81mg/d
-LDL elevated. A1C 7.5.
-PT OT ST eval
-Neurology consulted
#Hypertensive urgency
-Patient woke up with symptoms yesterday morning and out of permissive hypertension window
-starting small dose losartan for Bp control with PRN hydralazine. Adjust as needed.
#HLD
-LDL elevated. increase atorvastatin to 40mg
#NIDDM
- matinain on diabetic diet with ISS once clears ST eval
DVTPPX -scd pending MRI
Full code
d/w with son at bedside at details who assisted in translation.
Anticipated Discharge: > 48 hours
Subjective/Interval History
-
Date of Service: August 02, 2023
eating breakfast
states of neck pain
Able to lift RUE
Overnight events noted
headache has improved and now only remains mild
Objective Data
-
Labs:
Laboratory Results
08/02/23
03:19
WBC 7.2
Hgb 13.2
Hct 38.0
Plt Count 224
PT 13.2
INR 1.02
APTT 32.1
Sodium 137
Potassium 4.5
Chloride 106
Carbon Dioxide 23
BUN 19 H
Creatinine 0.8
Glucose 132 H
Calcium 9.3
Vital Signs:
Vital Signs
Temp Pulse Resp BP Pulse Ox
97.9 F 64 18 140/77 95
08/02/23 11:04 08/02/23 10:30 08/02/23 10:30 08/02/23 10:19 08/02/23 10:03
I&O
08/01/23 08/02/23 08/03/23
06:59 06:59 06:59
Intake Total 250 / 250 500 / 500
Balance 250 / 250 500 / 500
Physical Exam
-
General: Well Developed and No Apparent Distress
HEENT: Normocephalic, Atraumatic and Moist Mucous Membranes
Respiratory: Clear to Auscultation
Cardiac: Regular Rhythm and S1/S2; Negative Murmur, Rub or Gallop
GI: Soft, Nontender, Nondistended and Normal Bowel Sounds; Negative Organomegaly
Rectal: Deferred by Provider
Musculoskeletal: No Clubbing, No Cyanosis, No Edema and Other (TTP for cervical R side musculature. No stepoffs )
Skin: Negative Rash
Neuro: Awake, Alert, Nonfocal/Grossly Intact and Other (RUE and RLE weakness. ); Negative Tremors or Sedated
Psych: Calm
Data Reviewed
-
Total Time Spent with Patient (in minutes): 55
--- NOTE | 2023-08-02 12:10 | PTOTSP ---
Speech Language Pathology
Pt seen for clinical bedside swallow evaluation. Pt primary language is Liberian, but she also speaks Latvian. [id number] at bedside requesting to translate for pt. Dysarthria noted in Latvian. Family verified noting dysarthria in
Liberian and that pt is not always intelligible. Initial sound dysfluencies noted x1 during evaluation as well. P.O. trials of puree, regular solids, and thin liquids provided. Prolonged mastication of regular solids noted with no oral
residue/pocketing. Pt complained of globus sensation with regular solids with throat clearing noted. Pt also complaining of odynophagia.
Recommend:
(1) IDDSI level 4 Solids (Puree) and Thin liquids
(2) Aspiration precautions: sit upright, slow rate, single sips, intermittent supervision
(3) Meds as tolerated
(4) VSE 08/02
(5) ACROBATIC DANCER to continue to follow for speech/language evaluation and VSE
--- NOTE | 2023-08-02 12:47 | PTCARENOTE ---
Pt OOB to chair with PT-see note. Pt able to ambulate with walker to bathroom X1 asst. Able to support weight on RU/LE but still demonstrating weakness and ataxia with assessment. Speech Tx to bedside, recommending pureed diet due to the pt's
hesitancy and fear of swallowing solids. Assisted back to bed with walker and minimal assistance X1.
[2023-08-02 12:50] LABS: Glucose - Point of Care 125 mg/dl (70-99)
[2023-08-02] MEDS: ROCEPHIN 1000 MG IV (13:10)
[2023-08-02] MEDS: STERILE WATER FOR INJECTION 10 ML IV (13:10)
--- NOTE | 2023-08-02 15:25 | CM ---
Yemeni speaking patient with Dx Ataxia/dizziness/R sided weakness - Rule out CVA vs complex migraine. MRI Brain pending. PT & OT recommend acute rehab.
Spoke with patient's son Janine Cabezas (ph [phone]);
the patient resides with her Crispin Cabezas in a 2 story house with 2 ASIF.
The patient had been independent in ADLs and ambulation.
The patient has no DME, prior VN or SNF.
PCP - Erasto Cabezas
Pharmacy - [facility]
Janine says he has been getting updates on his mother's status from MD & nurses.
Discussed patient's current functional status as per PT/OT. Son says his mother will be agreeable to acute rehab and he agrees with a referral to [facility].
Request to Dr Musa for Physiatry Consult.
Phone call to [facility] Liaison; left message re; referral. Question as to whether Physiatry Consult needed as patient has straight Medicare. Referral placed in [facility] for [facility].
Plan follow up with [facility] re; acceptance.
[2023-08-02 17:38] LABS: Glucose - Point of Care 113 mg/dl (70-99)
--- NOTE | 2023-08-02 20:00 | PTCARENOTE ---
patient received in bed, NIH done in tandem with off going RN. Patient asleep but arousable, noted right sided weakness, aphasia, dysarthria and facial droop. Offers no complaints. NSR on monitor, afebrile, normotensive. No edema noted. Knee
high SCDs maintained. Lungs clear, pulse ox 95% on room air. Abdomen soft with hypoactive bowel sounds. #20 g in LAC flushed and patent. Daughter at bedside.
[2023-08-02] MEDS: LIPITOR 40 MG PO (21:58)
[2023-08-02 22:04] LABS: Glucose - Point of Care 119 mg/dl (70-99)
[2023-08-03] VITALS (14 sets, daily range): BP systolic 100–156; BP diastolic 55–85; BMI 20.9
--- NOTE | 2023-08-03 00:17 | PTCARENOTE ---
Neuro checks unchanged, sleeping when not disturbed, no other changes in assessment
--- NOTE | 2023-08-03 03:16 | PTCARENOTE ---
patient ambulated with assist x1 with walker, OOB to chair, no changes in assessment.
[2023-08-03 04:28] LABS: Hematocrit 37.2 % (37.0-47.0); Hemoglobin 12.9 g/dL (12.0-16.0); Mean Corp Hgb Conc. 34.7 g/dL (33.0-37.0); Mean Corpuscular Hgb 31.2 pg (27.0-31.0); Mean Corpuscular Volume 89.9 fL (81.0-99.0); Platelet Count 224 10^3/uL (130-400); Red Blood Cell Count 4.14 10^6/uL (4.20-5.40); Red Cell Dist. Width 12.5 % (11.5-14.5); White Blood Cell Count 6.9 10^3/uL (4.8-10.8)
[2023-08-03 04:51] LABS: Blood Urea Nitrogen 24 mg/dl (7-17); Calcium 8.9 mg/dl (8.4-10.2); Carbon Dioxide 24 mmol/L (22-30); Chloride 108 mmol/L (98-107); Estimated Creatinine Clearance 63 ml/min; Glucose 145 mg/dl (70-99); Sodium 139 mmol/L (135-145); eGFR > 60.00
[2023-08-03] MEDS: PROTONIX 40 MG PO (07:34)
[2023-08-03] MEDS: PLAVIX 75 MG PO (07:34)
[2023-08-03] MEDS: LOW STRENGTH ASPIRIN 81 MG PO (07:34)
[2023-08-03] MEDS: COZAAR 25 MG PO (07:34)
[2023-08-03 07:36] LABS: Glucose - Point of Care 129 mg/dl (70-99)
[2023-08-03] MEDS: NOVOLOG FLEXPEN-LOW RESISTANCE SC ×3 (08:05→17:51)
--- NOTE | 2023-08-03 10:08 | PTCARENOTE ---
patient received in bed, NIH done in tandem with off going RN. Patient alert, noted right sided weakness, aphasia, dysarthria and facial droop. Offers no complaints. NSR on monitor, afebrile, normotensive. No edema noted. Knee high SCDs
maintained. Lungs clear, pulse ox 95% on room air. Abdomen soft with hypoactive bowel sounds. #20 g in LAC flushed and patent. Daughter at bedside.
--- NOTE | 2023-08-03 10:53 | W.PN.NEURO.1 ---
Today's Communication / Plan
-
Provide aspirin and clopidogrel, 21-day timeframe and then aspirin alone 81 mg daily
Prochlorperazine for headache control
Goal of normotension
Goal of normoglycemia
Provide atorvastatin 80 mg daily due to significantly elevated LDL
Rehabilitation evaluations and treatment
Neuro Assessment/Plan
Assessment
IMPRESSIONS/RECOMMENDATIONS:
Abrupt onset of dizziness, speech changes, nausea in a patient with long-term migraine without aura (transformed migraine, status migrainosus)
MRI of brain demonstrating large left pontine acute ischemic stroke producing subsequent right hemibody weakness
Plan
Provide aspirin and clopidogrel, 21-day timeframe and then aspirin alone 81 mg daily
Prochlorperazine for headache control
Goal of normotension
Goal of normoglycemia
Provide atorvastatin 80 mg daily due to significantly elevated LDL
Rehabilitation evaluations and treatment
Will follow as needed. Please contact us with additional questions or issues. Patient may follow-up with us as an outpatient.
Subjective/Objective
Subjective Data
Date of Service: August 03, 2023
Objective Data
Vital Signs
Temp Pulse Resp BP Pulse Ox
36.7 C 72 16 111/60 96
08/03/23 07:48 08/03/23 09:00 08/03/23 09:00 08/03/23 06:00 08/03/23 08:00
Lab Results
08/03/23 04:11
08/03/23 04:11
PT 13.2 Sec (11.4-14.6) 08/02/23 03:19
INR 1.02 08/02/23 03:19
APTT 32.1 Sec (23.4-35.0) 08/02/23 03:19
Sodium 139 mmol/L (135-145) 08/03/23 04:11
Potassium 4.0 mmol/L (3.5-5.1) 08/03/23 04:11
BUN 24 mg/dl (7-17) H 08/03/23 04:11
Glucose 145 mg/dl (70-99) H 08/03/23 04:11
Calcium 8.9 mg/dl (8.4-10.2) 08/03/23 04:11
LDL Cholesterol, Calc 154 mg/dl 08/02/23 03:19
Vitamin B12 766 pg/ml (239-931) 08/01/23 08:05
Patient Allergies
NKA - No Known Allergies Allergy (Severe, Uncoded 05/19/18 12:47)
Unknown
Data Reviewed
-
MRI Head: Report Reviewed and Image Reviewed
Labs: Report Reviewed
Lipid Profile: Report Reviewed
Reviewed with: Physician and Nurse Practioner
Old Records: Summarized
Past History
Past History
ED Past Medical History: CVA (Left pontine July 2023), GERD, HTN, Hypercholesterolemia and Other (Arthritis, Lyme disease (2019))
ED Past Surgical History: Gynecological (Hysterectomy)
Social History
Tobacco: Non-smoker
Alcohol: None
Personal:
Living: with family
Family History
Family History: Other (Reviewed and noncontributory)
Medications
-
Medications:
Generic Name Dose Route Start Last Admin
Trade Name Freq PRN Reason Stop Dose Admin
Acetaminophen 650 mg 08/01/23 15:42
Acetaminophen 650 Mg Rectal Suppository RECTAL 08/29/23 15:41
Q4HPRN PRN
JAMIL, mild pain, or temp >100.4F
Acetaminophen 650 mg 08/01/23 15:42
Acetaminophen 325 Mg Tablet PO 08/29/23 15:41
Q4HPRN PRN
JAMIL, mild pain, or temp >100.4F
Aspirin 81 mg 08/02/23 08:00 08/03/23 07:34
Aspirin 81 Mg Chewable Tablet PO 08/30/23 07:59 81 mg
DAILY MARCE Administration
Atorvastatin Calcium 80 mg 08/03/23 22:00
Atorvastatin (Lipitor) 80 Mg Tablet PO 08/31/23 21:59
HS MARCE
Ceftriaxone Sodium 1,000 mg 08/02/23 14:00 08/02/23 13:10
Ceftriaxone 1000 Mg / 10 Ml Vial IV 1,000 mg
Q24H MARCE Administration
Clopidogrel Bisulfate 75 mg 08/03/23 08:00 08/03/23 07:34
Clopidogrel 75 Mg Tablet PO 08/31/23 07:59 75 mg
DAILY MARCE Administration
Dextrose 12.5 grams 08/01/23 15:42
Dextrose 50% (0.5 Grams/Ml) 50 Ml Syringe IV 08/29/23 15:41
[id number] PRN
hypoglycemia
Protocol
Diazepam 2 mg 08/01/23 15:42
Diazepam 2 Mg Tablet PO 08/29/23 15:41
TIDPRN PRN
vertigo
Glucagon 1 mg 08/01/23 15:42
Glucagon 1 Mg Vial IM 08/29/23 15:41
PRN PRN
hypoglycemia
Protocol
Insulin Aspart 0 units 08/01/23 16:30 08/03/23 08:05
Insulin Aspart Low Resistance 300 Units/3 Ml Pen.Injctr SC 08/29/23 16:29 Not Given
AC MARCE
Protocol
Losartan Potassium 25 mg 08/01/23 15:42 08/03/23 07:34
Losartan 25 Mg Tablet PO 08/29/23 15:41 25 mg
DAILY MARCE Administration
Ondansetron HCl 4 mg 08/01/23 11:11 08/01/23 11:14
Ondansetron 4 Mg/2 Ml Vial IV 08/29/23 11:10 4 mg
Q6HPRN PRN Administration
NAUSEA/VOMITING
Pantoprazole Sodium 40 mg 08/02/23 10:00 08/03/23 07:34
Pantoprazole 40 Mg Delayed Release Tablet PO 08/30/23 09:59 40 mg
DAILY MARCE Administration
Sodium Chloride 0 flush 08/01/23 12:00
Sodium Chloride 0.9% (Flush) Syringe IV 08/29/23 11:59
PER PROTOCOL MARCE
Sterile Water 10 ml 08/02/23 14:00 08/02/23 13:10
Sterile Water For Injection 10 Ml Vial IV 08/30/23 13:59 10 ml
Q24H MARCE Administration
--- NOTE | 2023-08-03 11:10 | W.PN.HOSP.TC ---
Today's Communication/Plan
-
metformin
ucx data
NSG input
PMR eval
tx to tele
TTE
Assessment / Plan
Assessment / Plan
#Acute Large ischemic CVA left raman
-CT head negative without any acute pathology
-Overnight Stroke alert- CT perfusion studies and CTA negative.
-MRI brain ARGE 2.0 cm ACUTE ISCHEMIC INFARCT in the LEFT RAMAN. Chiari I malformation. Mild diffuse cerebral and cerebellar volume loss.
-Patient already got aspirin 325 mg for presumed stroke, maintain on ASA 81mg/d and plavix added.
-LDL elevated. A1C 7.5.
-PT OT -Acute rehab.
-VSE study today
-Check ECHO
-Neurology recs
#RUE weakness/decrease sensation likely from CVA vs. cervical stenosis/compression
-MR cervical spine MODERATE to SEVERE SPINAL CORD COMPRESSION and central canal stenosis at C4/C5 secondary to a diffuse disc-osteophyte complex. Severe right and moderate to severe left neural foraminal narrowing at C4/C5.
-will ask NSG for input.
#Strep UTI
-Started on rocephin
#Hypertensive urgency
-improved.
-started on losartan 25mg daily
#HLD
-LDL elevated. increase atorvastatin to 40mg
#NIDDM
- A1C at 7.5
-start metformin 500mg BID
-ada. iss. accuchecks.
DVTPPX -scds/lovenox
Full code
d/w with daughter at bedside at details who assisted in translation.
PT/OT-Acute rehab. PMR consulted.
tx to tele
d/w wtih snagger.
Anticipated Discharge: > 48 hours
Subjective/Interval History
-
Date of Service: August 03, 2023
daughter and spouse at bedside
Improvement in RUE
remains with neck pain and tingling/decrease sensation RUE
Objective Data
-
Labs:
Laboratory Results
08/03/23
04:11
WBC 6.9
Hgb 12.9
Hct 37.2
Plt Count 224
Sodium 139
Potassium 4.0
Chloride 108 H
Carbon Dioxide 24
BUN 24 H
Creatinine 0.7
Glucose 145 H
Calcium 8.9
Vital Signs:
Vital Signs
Temp Pulse Resp BP Pulse Ox
98.0 F 72 16 111/60 96
08/03/23 07:48 08/03/23 09:00 08/03/23 09:00 08/03/23 06:00 08/03/23 08:00
I&O
08/02/23 08/03/23 08/04/23
06:59 06:59 06:59
Intake Total 250 / 250 500 / 500
Balance 250 / 250 500 / 500
Physical Exam
-
General: Well Developed and No Apparent Distress
HEENT: Normocephalic, Atraumatic and Moist Mucous Membranes
Respiratory: Clear to Auscultation
Cardiac: Regular Rhythm and S1/S2; Negative Murmur, Rub or Gallop
GI: Soft, Nontender, Nondistended and Normal Bowel Sounds; Negative Organomegaly
Rectal: Deferred by Provider
Musculoskeletal: No Clubbing, No Cyanosis, No Edema and Other (TTP for cervical R side musculature. No stepoffs )
Skin: Negative Rash
Neuro: Awake, Alert, Nonfocal/Grossly Intact and Other (RUE weakness improved and RLE weakness. ); Negative Tremors or Sedated
Psych: Calm
[2023-08-03 11:56] LABS: Glucose - Point of Care 220 mg/dl (70-99)
--- NOTE | 2023-08-03 12:11 | W.PN.INTV ---
Addendum entered and electronically signed by Raul Guevara MD 08/03/23 14:03:
Patient was confirmed with acute CVA. To be transferred to telemetry
Continue with post CVA care
See note below
Original Note:
Documented by User: Vicki Griffin MD, Resident 08/03/23 12:50
Today's Communication / Plan
Recommendations
PT/OT
Transfer to telemetry
DVT prophylaxis with Lovenox 40 mg
Atorvastatin dose increased to 80 mg
Aspirin plus clopidogrel for 21 days
Metformin 500 mg twice daily
Assessment
-
ASSESSMENT:
67-year-old woman with past medical history noted. Transferred to the critical care unit for abrupt change in neurological status. Mainly right hemiparesis and aphasia associated with headaches.
1. Acute ischemic infarct left baron
2.Dizziness/Ataxia
3.Hypertension
4.Hyperlipidemia
5.GERD
6.NIDDM
7..DVT prophylaxis
PLAN:
1. Acute ischemic infarct left baron
-Patient was called in for stroke alert overnight
-She had new onset right upper extremity and right lower extremity weakness
�NIH score 14
� CT�PE and CT�A showed no abnormalities
� Neurology consulted�possibility of either migraine with aura/somatization disorder
� Started on Benadryl + Compazine + Maxalt
-MRI without contrast on 08/02/2023 report: Large 2cm acute ischemic infarct in the left baron, white matter leukoaraiosis in the right frontal lobe, Chiari I malformation, diffuse cerebral and cerebellar volume loss.
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
- Continue aspirin 81 mg, clopidogrel 75 mg added- DAPT for 21 days.
-Prochlorperazine for headache control
-Goal normotension
�Neurologic checks
-PT/OT
� Rehabilitation
�Transfer to telemetry
2. Dizziness/ataxia/ Aphasia on admission
�NIH score on admission was 8
� CVA was ruled out, CT head showed no evidence of stroke, not a candidate for alteplase.
- Patient is currently on aspirin 81 mg, after loading dose
3.Hypertension
�Continue losartan, 25 mg
4.Hyperlipidemia
-Triglycerides 189, total cholesterol 250, VLDL 37
-Atorvastatin dose increased to 80 mg
5.GERD
� H/o reflux, was using ondansetron at home
� Started on pantoprazole 40 mg, daily
6.NIDDM
- Elevated HbA1c 7.5
�FBG 145
�Started metformin 500 mg twice daily
7. DVT prophylaxis
� Lovenox 40 mg SC
Subjective Dataa
Subjective Data
Date of Service:
Date of Service: August 03, 2023
Subjective:
Patient is seen today, with [id number] at bedside who helped with translation
Weakness on her right side has improved since yesterday, speech is comprehendable and close to baseline. No swallowing difficulty with liquids and solid diet. Patient reports no chest pain, SOB, fevers, acute vision changes, bladder/bowel
abnormalities. Patient reports her headache has improved.
Review of Systems
Neuro: Headache
Objective Data
Data Reviewed
Vital Signs / I&O / Oxygen:
Vital Signs
Temp Pulse Resp BP Pulse Ox
98.3 F 75 16 141/69 96
08/03/23 11:18 08/03/23 09:06 08/03/23 09:00 08/03/23 11:09 08/03/23 08:00
Intake and Output
08/02/23 08/03/23 08/04/23
06:59 06:59 06:59
Intake Total 250 / 250 500 / 500
Balance 250 / 250 500 / 500
SaO2 96
Physical Exam
General: Comfortable
HEENT: Normocephalic
Cardiovascular: S1-S2
Respiratory: Clear
GI: Soft, Non Distended and Non Tender
Neurology: Awake, Alert, Oriented, AO x 3, Other (Language barrier, son at the bedside helping with translation.) and Other (Motor-strength 4/5 right upper and lower extremity, sensations decreased on the right upper and lower extremity, deep tendon
reflexes bilateral upper and lower extremities-normal, Cranial nerve examination-facial asymmetry positive, shoulder shrug unremarkable, no pronator drift,)
Skin: Warm and Dry
Labs/Micro/Reports
Lab Data
08/03/23 04:11
08/03/23 04:11
Microbiology
08/01/23 09:58 Urine Urine Culture - Final
Streptococcus species

Documented by User: Raul Guevara MD 08/03/23 13:53
Today's Communication / Plan
Recommendations
PT/OT, eventula rehab
Neurosurgery has been consulted.
Transfer to telemetry
DVT prophylaxis with Lovenox 40 mg
Atorvastatin dose increased to 80 mg
Aspirin plus clopidogrel for 21 days
Metformin 500 mg twice daily
CCM will sign off.
Assessment
-
ASSESSMENT:
67-year-old woman with past medical history noted. Transferred to the critical care unit for abrupt change in neurological status. Mainly right hemiparesis and aphasia associated with headaches.
1. Acute ischemic infarct left baron
2.Dizziness/Ataxia
3.Hypertension
4.Hyperlipidemia
5.GERD
6.NIDDM
7..DVT prophylaxis
PLAN:
1. Acute ischemic infarct left baron
-Patient was called in for stroke alert overnight
-She had new onset right upper extremity and right lower extremity weakness- improving.
�NIH score 14
� CT�PE and CT�A showed no abnormalities
� Neurology consulted�possibility of either migraine with aura/somatization disorder
� Started on Benadryl + Compazine + Maxalt
-MRI without contrast on 08/02/2023 report: Large 2cm acute ischemic infarct in the left baron, white matter leukoaraiosis in the right frontal lobe, Chiari I malformation, diffuse cerebral and cerebellar volume loss.
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
Neurosurgery has been consulted.
- Continue aspirin 81 mg, clopidogrel 75 mg added- DAPT for 21 days.
-Prochlorperazine for headache control
-Goal normotension
�Continue Neurologic checks
-PT/OT
� Rehabilitation
�Transfer to telemetry
2. Dizziness/ataxia/ Aphasia on admission
�NIH score on admission was [address]
Positive MRI with ischemic CVA as above.
- Patient is currently on aspirin 81 mg, after loading dose
3.Hypertension
�Continue losartan, 25 mg
4.Hyperlipidemia
-Triglycerides 189, total cholesterol 250, VLDL 37
-Atorvastatin dose increased to 80 mg
5.GERD
� H/o reflux, was using ondansetron at home
� Started on pantoprazole 40 mg, daily
6.NIDDM
- Elevated HbA1c 7.5
�FBG 145
�Started metformin 500 mg twice daily
UTI, on ABX per primary team. Would treat for three days.
7. DVT prophylaxis
� Lovenox 40 mg SC
--- NOTE | 2023-08-03 12:55 | PTOTSP ---
Video Swallow Examination
Patient presents with mild oral/pharyngeal dysphagia and possible esophageal dysphagia (i.e., retention t/o esophagus during esophageal sweep, reduced with a thin liquid wash). No aspiration occurred.
Recommend:
1. Regular - pick soft/moist foods, Thin Liquids
2. Medications - as best tolerated
3. Strategies: alternate bites/sips to assist with pharyngoesophageal clearance, upright for meals and at least 30 minutes afterwards as a reflux precaution
4. Consider GI consult to further assess esophageal stage of swallowing.
5. Continued follow up with [facility] for dysphagia tx for further education in results/recommendations/compensations post swallow study and for a full speech/language evaluation.
--- NOTE | 2023-08-03 13:50 | CON.NS ---
Consultation
-
Date/Time Consultation Performed: 08/03/2023, 13:55
Performing Provider: Jacquelyn
Reason for Consultation: right arm weakness, cervical spinal stenosis.
Chief Complaint
History of Present Illness
Is a neurosurgical consultation on a 67-year-old female who presented on 08/01/2023 with symptoms of acute onset of nausea, dizziness, balance difficulties. She also reported a by lateral bitemporal headache. Patient has a past medical history
significant for hyperlipidemia, diabetes. She ultimately underwent neurologic evaluation/consultation, and was advised that she would benefit from a brain MRI with and without contrast.
The patient then had progression of symptoms with new onset of right arm and leg weakness. A stroke alert was called. Reportedly, CT of the head, CTA was negative for abnormalities. Patient ultimately had an MRI of the brain which demonstrated a
large left pontine stroke. He was advised the patient should be initiated on aspirin and Plavix. Patient, and evaluation of stroke, also underwent an MRI of the cervical spine given right-sided weakness, and there was reported severe spinal cord
compression at C4-5, and therefore neurosurgery was consulted.
Patient seen and examined. Many family members at bedside. Daughter is at bedside, and serves as soda dialyzer. Daughter reports, per patient, the patient has chronic neck pain. However, the patient has not had any issues, prior to this acute
onset, of balance difficulties, falls, or hand dexterity issues.
Review of Systems
-
10 point review of systems was performed, including constitutional, ENT, cardiovascular, respiratory, GI, , hematologic, endocrinologic, neurologic, psychiatric, and was negative, except for stated in HPI.
Medication and Allergies
Home Medications
Home Medications
Medication Instructions Recorded
acetaminophen 650 mg 650 mg PO Q8H PRN mild pain 08/01/23
tablet,extended release (8 Hour
Pain Reliever)
baclofen 10 mg tablet 10 mg PO Q8H PRN mild pain 08/01/23
fluticasone propionate 50 1 spray intranasal BID Allergies 08/01/23
mcg/actuation nasal
spray,suspension
meloxicam 15 mg tablet 15 mg PO DAILY Pain 08/01/23
omeprazole 40 mg capsule,delayed 40 mg PO DAILY PRN reflux 08/01/23
release
Allergies
Allergies
Allergy/AdvReac Type Severity Reaction Status Date / Time
NKA - No Known Allergies Allergy Severe Unknown Uncoded 05/19/18 12:47
Physical Exam
-
Exam:
Awake, alert, conversant in primary language.
Head is normocephalic, atraumatic.
Pupils are equal round reactive to light.
Extraocular movements are full without any nystagmus.
Right facial droop
Tongue appears to be midline
Motor: Right-sided weakness, strength approximately 3/5 in both upper and lower extremities. 5/5 in left upper and lower extremity.
Neck is supple
Breathing nonlabored
Abdomen is soft
No evidence of Adia sign in bilateral upper extremities.
Gait not tested
Extremities warm
Normal capillary refill
No evidence of edema.
Exams:� MR Brain Without Contrast
CPT: 67031
PROCEDURE: MR Brain Without Contrast
CLINICAL INDICATION: Acute stroke. Ataxia. Nausea. Balance problems. Dizziness. Right upper and lower extremity weakness. Hyperlipidemia. [id number]-[id number] diabetes mellitus. Hypertension.
TECHNIQUE: An MRI examination of the brain was performed without intravenous contrast on a 1.5 Chela magnet. 3-D thin section T1 gradient echo, axial diffusion, axial susceptibility weighted, axial T2, axial FLAIR , and coronal T2-weighted imaging
sequences were obtained.
COMPARISON: Comparison is made with an MRI examination of the cervical spine aren't 08/02/2023, a CT examination of the head performed 08/01/2023, and a CTA examination of the head and neck performed 08/01/2023.
FINDINGS:
There is a large 2.0 x 1.2 x 1.1 cm acute ischemic infarct in the left side of the raman demonstrating restricted diffusion and containing high T2/FLAIR signal intensity cytotoxic edema.
Both cerebellar tonsils extend inferiorly into the foramen magnum consistent with a Chiari I malformation. The ventricles are midline without evidence for obstructive hydrocephalus. There is mild diffuse cerebral and cerebellar volume loss. There is
no MRI evidence for acute or chronic intracranial hemorrhage. There are no extra-axial fluid collections. There is a minimal amount of white matter leukoaraiosis in the periventricular and subcortical white matter of the right frontal lobe.
The intracranial vertebral arteries are both tortuous causing a mild to moderate amount of compression on the sides of the medulla prior to formation of the basilar artery. The major arterial flow voids at the base of the brain are present.
The orbits appear normal. There is mild mucosal thickening throughout the ethmoid air cells. The mastoid air cells are clear.
There are mild degenerative changes of the atlantodens articulation with the transverse ligament posterior to the dens causing mild ventral spinal cord compression. There is moderate discogenic degenerative disease at C4/C5 with a small central disc
herniation causing moderate spinal cord compression and central canal stenosis.
IMPRESSION:
1. � LARGE 2.0 cm ACUTE ISCHEMIC INFARCT in the LEFT RAMAN.
2. � Minimal white matter leukoaraiosis in the right frontal lobe.
3. � Chiari I malformation.
4. � Mild diffuse cerebral and cerebellar volume loss.
Electronically signed by Alec Mello MD 08/02/2023 5:24 PM
PROCEDURE: MR Cervical Spine Without
CLINICAL INDICATION: Right upper and lower extremity weakness. Ataxia. Dizziness. Balance problems. Nausea. Hyperlipidemia. Duw-pedyalt-dpnbrmdrh diabetes mellitus.
TECHNIQUE: An MRI examination of the cervical spine was performed without intravenous contrast on a 1.5 Chela magnet. Coronal STIR, sagittal T2 fat-suppressed, sagittal T2, sagittal STIR, sagittal T1, and axial T2 weighted imaging sequences were
obtained.
COMPARISON: Comparison is made with an MRI examination of the brain performed 08/02/2023 and a CTA examination of the head and neck performed 08/01/2023.
FINDINGS:
There is a large region of signal abnormality in the center of the raman measuring 1.3 x 2.0 x 0.6 cm in craniocaudal, AP, and transverse dimensions which demonstrates isointense T1 and hyperintense T2/FLAIR signal consistent with a large acute
ischemic infarct. The cerebellar tonsils both mildly extend inferiorly into the foramen magnum suggesting a mild Chiari I malformation.
There is loss of the normal cervical lordosis with straightening of the cervical spine. The cervical vertebral bodies are normal in height without evidence for fracture. There is mild to moderate discogenic degenerative disease at C4/C5 and C5/C6
with loss of intervertebral disc space height and small vertebral body endplate osteophytes. There is mild disc desiccation at the other cervical levels.
There appears to be congenital central canal stenosis throughout the cervical spine. This increases the degree of central canal stenosis caused by acquired discogenic degenerative disease.
Evaluation of the individual levels demonstrates:
At C1/C2: There are mild degenerative changes of the atlantodens articulation. There is no central canal stenosis in the foramen magnum.
At C2/C3: There is no disc herniation, central canal stenosis, or neural foraminal narrowing.
At C3/C4: There is a small broad-based central disc herniation causing mild spinal cord compression and central canal stenosis. There is mild to moderate bilateral neural foraminal narrowing.
At C4/C5: There is a moderate-sized diffuse disc-osteophyte complex causing moderate to severe ventral spinal cord compression and central canal stenosis. There is severe right and moderate to severe left neural foraminal narrowing.
At C5/C6: There is a small to moderate-sized left subarticular disc herniation causing moderate spinal cord compression and central canal stenosis. There is severe left neural foraminal narrowing and exiting left C6 nerve root impingement. There is
no right neural foraminal narrowing.
At C6/C7: There is a tiny central disc herniation. There is no central canal stenosis or neural foraminal narrowing.
At C7/T1: There is a small central disc herniation. There is no central canal stenosis or neural foraminal narrowing.
At T1/T2 and T2/T3: There are small central disc herniations. There is no central canal stenosis or neural foraminal narrowing.
At T3/T4: There is no disc herniation, central canal stenosis, or left neural foraminal narrowing. There is mild right neural foraminal narrowing secondary to mild right-sided facet joint arthrosis.
There is no abnormal prevertebral soft tissue swelling. There are high T2 signal intensity solid appearing nodules in the right lobe of the thyroid gland measuring up to 1.1 cm in size. There is no MRI evidence for acute paraspinal muscle edema.
IMPRESSION:
1. � LARGE ACUTE ISCHEMIC INFARCT in the LEFT RAMAN.
2. � Mild Chiari I malformation.
3. � MODERATE to SEVERE SPINAL CORD COMPRESSION and central canal stenosis at C4/C5 secondary to a diffuse disc-osteophyte complex. Severe right and moderate to severe left neural foraminal narrowing at C4/C5.
4. � Moderate spinal cord compression, moderate central canal stenosis, and severe left neural foraminal narrowing at C5/C6 secondary to a small to moderate-sized left subarticular disc herniation.
5. � Small central disc herniation at C3/C4 causing mild spinal cord compression.
6. � Congenital central canal stenosis throughout the cervical spine.
7. � Multiple right-sided solid thyroid nodules.
I thoroughly reviewed the MRI of the cervical spine performed on 08/02/2023 at approximately 4:22 PM. The patient has multilevel cervical spondylosis, with disc osteophyte complexes, most severe at C4-C5 which causes concentric spinal canal
narrowing. There is no obvious evidence of signal change noted in the cord.
Assessment / Plan
-
This is a 67-year-old female who presents with acute onset of headache, and right upper and lower extremity weakness. She ultimately had an MRI of the brain, and cervical spine, which revealed a large left pontine stroke. Additionally, there is
evidence of degenerative, likely chronic cervical spondylosis with cervical spinal stenosis, most severe at C4-C5. At the present time, recommend management of the patient's acute large brainstem stroke. Likely this is the cause of the patient's
right arm and leg weakness. With regards to the patient's cervical spinal cord findings, Given that the patient does not have any evidence of cord signal change at the present time, she can follow-up on a delayed basis once she has recovered from
her stroke should she have any residual symptomatology of myelopathy. Agree with neurology recommendations regarding stroke management. Patient will benefit from stroke rehab/aggressive PT/OT.
Please call with questions
[2023-08-03] MEDS: STERILE WATER FOR INJECTION 10 ML IV (14:07)
[2023-08-03] MEDS: ROCEPHIN 1000 MG IV (14:07)
--- NOTE | 2023-08-03 15:14 | CM ---
CM following re: d/c planning
Chart reviewed
Pt status remains unchanged
CM met with the patient's daughter Syl Childs who was visiting bedside; introduced self and CM role
PT/OT continue to recommend acute rehab post d/c
CM spoke with [facility] liaison and she has confirmed bed availability as long as the patient remains acute rehab appropriate
Anticipated d/c is greater than 48 hours
CM to remain available and assist with d/c planning to acute rehab
PLAN; d/c to [facility] when medically appropriate
[2023-08-03 17:44] LABS: Glucose - Point of Care 203 mg/dl (70-99)
[2023-08-03] MEDS: GLUCOPHAGE 500 MG PO (17:55)
[2023-08-03] MEDS: LOVENOX 40 MG SC (17:55)
--- NOTE | 2023-08-03 20:00 | PTCARENOTE ---
Patient received in bed, walking around room with son. NIH 8, right sided weakness noted, ataxia, mild slurring. NSR on monitor,afebrile, blood pressure as documented. Lungs clear, on room air. Good appetite for dinner. Voiding without
difficulty. #20 g in LAC flushed and patent. Daughter at bedside, helping with translation. Plan of care discussed.
[2023-08-03] MEDS: LIPITOR 80 MG PO (21:09)
[2023-08-03 21:32] LABS: Glucose - Point of Care 122 mg/dl (70-99)
--- NOTE | 2023-08-03 23:15 | PTCARENOTE ---
Patient transferred to telemetry
[2023-08-04] VITALS (7 sets, daily range): BP systolic 132–153; BP diastolic 75–92; PULSE 68; O2SAT 99
--- NOTE | 2023-08-04 01:10 | PTCARENOTE ---
Patient received from ICU approximately 2315. [facility] done w/ transferring nurse - see [facility] documentation. Patient AAOx3, forgetful. VSS as documented. Assessment as documented. Bed alarm in place for patient safety. Patient oriented to room. Bed in
lowest position. Call gtz within reach.
[2023-08-04 05:03] LABS: Hematocrit 36.2 % (37.0-47.0); Hemoglobin 12.3 g/dL (12.0-16.0); Mean Corpuscular Hgb 30.7 pg (27.0-31.0); Mean Corpuscular Volume 90.3 fL (81.0-99.0); Mean Platelet Volume 8.9 fL (7.4-10.4); Platelet Count 206 10^3/uL (130-400); Red Blood Cell Count 4.01 10^6/uL (4.20-5.40); Red Cell Dist. Width 12.1 % (11.5-14.5); White Blood Cell Count 5.7 10^3/uL (4.8-10.8)
[2023-08-04 05:37] LABS: Blood Urea Nitrogen 19 mg/dl (7-17); Calcium 8.8 mg/dl (8.4-10.2); Carbon Dioxide 28 mmol/L (22-30); Chloride 107 mmol/L (98-107); Estimated Creatinine Clearance 63 ml/min; Glucose 136 mg/dl (70-99); Potassium 3.9 mmol/L (3.5-5.1); Sodium 140 mmol/L (135-145); eGFR > 60.00
[2023-08-04 07:50] LABS: Glucose - Point of Care 191 mg/dl (70-99)
[2023-08-04] MEDS: NOVOLOG FLEXPEN-LOW RESISTANCE 1 UNITS SC (09:15)
[2023-08-04] MEDS: COZAAR 25 MG PO (09:16)
[2023-08-04] MEDS: PROTONIX 40 MG PO (09:16)
[2023-08-04] MEDS: GLUCOPHAGE 500 MG PO ×2 (09:16→17:29)
[2023-08-04] MEDS: LOW STRENGTH ASPIRIN 81 MG PO (09:16)
[2023-08-04] MEDS: PLAVIX 75 MG PO (09:17)
--- NOTE | 2023-08-04 10:56 | W.PN.HOSP.TC ---
Today's Communication/Plan
-
await PM&R eval
monitor BP-adjust meds prn
Asa/plavix
cont with therapy
Assessment / Plan
Assessment / Plan
#Acute Large ischemic CVA left raman
-CT head negative without any acute pathology
-Overnight Stroke alert- CT perfusion studies and CTA negative.
-MRI brain ARGE 2.0 cm ACUTE ISCHEMIC INFARCT in the LEFT RAMAN. Chiari I malformation. Mild diffuse cerebral and cerebellar volume loss.
-Patient already got aspirin 325 mg for presumed stroke, maintain on ASA 81mg/d and plavix added for 21 then asa only.
-LDL elevated. A1C 7.5. started high dose lipitor. Started metformin.
-PT OT -Acute rehab. PM&R consulted .
-VSE study okay for regular diet consistency.
-ECHO noted
-Neurology recs
#Esophagela dysphagia likely 2/2 CVA
-OP GI follow up
#RUE weakness/decrease sensation likely from CVA vs. chronic cervical stenosis/compression/spondylosis
-MR cervical spine MODERATE to SEVERE SPINAL CORD COMPRESSION and central canal stenosis at C4/C5 secondary to a diffuse disc-osteophyte complex. Severe right and moderate to severe left neural foraminal narrowing at C4/C5.
-Appreciate Neurosurgery recs.
#Strep UTI
-Started on rocephin. Plan for 3d course.
#Hypertensive urgency
#Primary HTN-probably undiagnosed
-improved. If elevated increase losartan dose
-started on losartan 25mg daily
#HLD
-LDL elevated. increase atorvastatin to 80mg
#NIDDM
- A1C at 7.5
-start metformin 500mg BID
-ada. iss. accuchecks.
DVTPPX -scds/lovenox
Full code
d/w with spouse at bedside in details.
PT/OT-Acute rehab. PMR consulted.
Anticipated Discharge: Within 24 hours
Subjective/Interval History
-
Date of Service: August 04, 2023
states improvement in RUE weakness
walking around with walker
Objective Data
-
Labs:
Laboratory Results
08/04/23
04:43
WBC 5.7
Hgb 12.3
Hct 36.2 L
Plt Count 206
Sodium 140
Potassium 3.9
Chloride 107
Carbon Dioxide 28
BUN 19 H
Creatinine 0.7
Glucose 136 H
Calcium 8.8
Vital Signs:
Vital Signs
Temp Pulse Resp BP Pulse Ox
97.1 F 74 16 147/92 97
08/04/23 07:35 08/04/23 09:16 08/04/23 07:35 08/04/23 09:16 08/04/23 07:35
I&O
08/03/23 08/04/23 08/05/23
06:59 06:59 06:59
Intake Total 500 / 500 480 / 480
Balance 500 / 500 480 / 480
Physical Exam
-
General: Well Developed and No Apparent Distress
HEENT: Normocephalic, Atraumatic and Moist Mucous Membranes
Respiratory: Clear to Auscultation
Cardiac: Regular Rhythm and S1/S2; Negative Murmur, Rub or Gallop
GI: Soft, Nontender, Nondistended and Normal Bowel Sounds; Negative Organomegaly
Rectal: Deferred by Provider
Musculoskeletal: No Clubbing, No Cyanosis, No Edema and Other (TTP for cervical R side musculature. No stepoffs )
Skin: Negative Rash
Neuro: Awake, Alert, Nonfocal/Grossly Intact and Other (RUE weakness improving on daily basis and RLE weakness. ); Negative Tremors or Sedated
Psych: Calm
--- NOTE | 2023-08-04 10:57 | PTOTSP ---
Speech Therapy
Recommend comprehensive language/communication assessment in next level of care. Provided information on outpatient services if/when appropriate.
[2023-08-04 12:01] LABS: Glucose - Point of Care 200 mg/dl (70-99)
--- NOTE | 2023-08-04 12:50 | CON.MD ---
Consultation - Medical
-
Referring Provider: Dr. Reymundo Musa
Chief Complaint: Stroke
History of Present Illness: [employer] regulatory affairs spec used.
67-year-old right-handed female British speaking with PMH (as below) presented to [facility] on 08/01/2023 with dizziness, nausea, and balance problems. Initial CT of the head negative. Found with hypertensive urgency. Patient
developed new onset right hemiparesis. Repeat CT of the head without acute abnormalities. MRI noting large left pontine infarct with plan for 21 days of aspirin and Plavix followed by aspirin only. Echocardiogram with EF 55-60%. MRI of the
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 Seen by neurosurgery for
cervical concerns with plan for routine outpatient follow-up. Swallow evaluation 08/02 noting mild oropharyngeal dysphagia and possible esophageal dysphagia with plan for regular diet taking soft/moist foods with thin liquids. Suggestion of a GI
consult to assess esophageal stage of swallowing.
Past Medical History: essential HTN, HLD, non-insulin dependent diabetes mellitus, GERD, arthritis, Lyme's disease 2019
Procedure History: Hysterectomy
Family History: Denies
Social History:
Functional Level Premorbidly: Independent with all activities
Functional Level Currently:�� Min assist sit to stand, ambulating 40 feet x 2 with rolling walker contact-guard. Max assist grooming, mod assist lower extremity self-care.
Tobacco: Denies
Alcohol: Denies
Drug use: Denies
Lives with: Spouse
24-hour assistance available: Yes
Number of floors: 2
# steps to enter: 2
# steps to second floor: Full flight
Potential First floor set up: No
Driving: No
Occupation: Retired
�
Allergies:
Allergy/AdvReac Type Severity Reaction Status Date / Time
NKA - No Known Allergies Allergy Severe Unknown Uncoded 05/19/18 12:47
Review of Systems:
Constitutional: (x) abNormal _fatigue
Eye: (x) Normal _
Ear/Nose/Throat: (x) Normal _
Respiratory: (x) Normal _
Cardiovascular: (x) Normal _
Gastrointestinal: (x) Normal _
Genitourinary: (x) Normal _
Musculoskeletal: (x) abNormal _chronic neck pain
Integumentary: (x) Normal _
Neurologic: (x) abNormal _stroke with right-sided weakness, decreased sensation on the right, trouble talking, trouble swallowing
Psychiatric: (x) Normal _
Endocrine: (x) Normal _
Hematologic/Lymphatic: (x) Normal _
Allergic/Immunologic: (x) Normal _
Medications:
Active Current Visit Medication List
Category Date Time Status
Acetaminophen [Tylenol/Feverall] Med 08/01/23 15:42 Active
650 mg RECTAL Q4HPRN PRN
Acetaminophen [Tylenol] Med 08/01/23 15:42 Active
650 mg PO Q4HPRN PRN
Aspirin Chewable [Low Strength Aspirin] Med 08/02/23 08:00 Active
81 mg PO DAILY
Atorvastatin [Lipitor] Med 08/03/23 22:00 Active
80 mg PO HS
CefTRIAXone [Rocephin] Med 08/02/23 14:00 Active
1,000 mg IV Q24H
Clopidogrel Bisulfate [Plavix] Med 08/03/23 08:00 Active
75 mg PO DAILY
Dextrose 50%-Water [Dextrose 50% Syringe] Med 08/01/23 15:42 Active
12.5 grams IV [id number] PRN
Diazepam [Valium] Med 08/01/23 15:42 Active
2 mg PO TIDPRN PRN
Enoxaparin Sodium [Lovenox] Med 08/03/23 18:00 Active
40 mg SC QPM
Flush (0.9% Sodium Chloride) [Flush (Nss)] Med 08/01/23 12:00 Active
See Dose Instructions IV PER PROTOCOL
Glucagon [GlucaGen] Med 08/01/23 15:42 Active
1 mg IM PRN PRN
Insulin Aspart Corrective Low [Novolog Flexpen-Low Med 08/01/23 16:30 Active
Resistance]
See Protocol SC AC
Losartan [Cozaar] Med 08/01/23 15:42 Active
25 mg PO DAILY
METFORMIN HCl [Glucophage] Med 08/03/23 17:00 Active
500 mg PO BID@0800,1700
Ondansetron Injectable [Zofran] Med 08/01/23 11:11 Active
4 mg IV Q6HPRN PRN
Pantoprazole [Protonix] Med 08/02/23 10:00 Active
40 mg PO DAILY
Sterile Water [Sterile Water For Injection] Med 08/02/23 14:00 Active
10 ml IV Q24H
Vitals:
Temp Pulse Resp BP Pulse Ox
97.1 F 74 16 147/92 97
08/04/23 07:35 08/04/23 09:16 08/04/23 07:35 08/04/23 09:16 08/04/23 07:35
Height 5 ft 2 in
Actual Weight 51.7 kg
Body Mass Index (BMI) 20.9
Physical Exam:
General Appearance/Observation: Well-developed, well-nourished female in no apparent distress.
Pain/Comfort Assessment: Denies
Mood/Affect: Appropriate
Integumentary/Operative Site:
�� Pressure Ulcer Evaluation: absent over heels.
Eyes: Conjunctiva/Lids: normal ��� Pupils: pupils equal round and reactive to light and Accommodation
Ears/Nose/Throat: oral mucosa moist,� throat clear.������������ Lips/Teeth/Gums: normal
Cardiovascular: Heart: regular, no murmur
Pulses: dorsalis pedis 2+ bilaterally
Respiratory: Respiratory Effort/Chest Expansion: normal ������ Auscultation: Clear to auscultation bilaterally
Gastrointestinal: abdomen not tender, no distension, normal abdominal bowel sounds
Genitourinary: No Alvarado
Extremities: Edema: None Cyanosis: None Trophic changes: None
Neurology Exam:
Orientation: Alert, Oriented to self, Time, Place
Memory: Intact for recent medical concerns
Repetition: Intact
Comprehension: Intact
Two step command: Intact
Naming: Intact
Cranial Nerves:
�� CNII: Pupillary light reflex: Intact��� Visual Field: Intact
�� CN III, IV, : Extraocular muscles: Intact
�� CN V: Facial Sensation at Forehead: Decreased on right, Maxilla: Decreased on right, Mandible: Decreased on right
�� CN VII: Facial movement: Right facial weakness
�� CN VIII: Hearing: Normal
�� CN IX/X: Speech & swallow: Normal, Position of Uvula: Midline
�� CN XI: Shoulder shrug: Decreased on right
�� CN XII: Tongue protrusion: Midline
Sensory:
�� Light touch: Intact in bilateral upper and lower extremities, no extinction to double simultaneous stimulation
�� Proprioception:Intact in bilateral lower extremities
Reflexes:
�� Biceps: 2+ bilaterally
�� Brachioradialis: 2+ bilaterally
�� Triceps: 2+ bilaterally
�� Patellar: 2+ bilaterally
�� Achilles: 2+ bilaterally
�� Babinski: Down going bilaterally
�� Clonus: None
�� Adia: Negative bilaterally
Cerebellar: Dysmetria/Ataxia: None
Musculoskeletal:Motor: (Manual muscle scale 0-5)
Muscle SA EF WE EE FF FA HF KE DF EHL PF
Right� 5 5 5 5 5 5 5 5 5 5 5
Left 5 5 5 5 5 5 5 5 5 5 5
Tone: Normal in all extremities
Range of Motion: Passively within normal limits in all extremities
Lab Results
Laboratory Data
08/04/23 04:43
08/04/23 04:43
PT 13.2 Sec (11.4-14.6) 08/02/23 03:19
INR 1.02 03/11/24 03:19
APTT 32.1 Sec (23.4-35.0) 08/02/23 03:19
Total Bilirubin 1.3 mg/dl (0.2-1.3) 08/01/23 08:05
AST 39 U/L (14-36) H 08/01/23 08:05
ALT 33 U/L (0-35) 08/01/23 08:05
Alkaline Phosphatase 103 U/L (38-126) 08/01/23 08:05
Total Protein 7.6 g/dl (6.3-8.2) 08/01/23 08:05
Albumin 4.6 g/dl (3.5-5.0) 08/01/23 08:05
�
Diagnostic Results: as per HPI
-MRI without contrast on 08/02/2023 report: Large 2cm� acute ischemic infarct in the left baron, white matter leukoaraiosis in the right frontal lobe, Chiari I malformation, diffuse cerebral and cerebellar volume loss.
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
Assessment
67-year-old British speaking F PMH (essential HTN, HLD, NIDDM, GERD, arthritis, Lyme's disease 2019, cervical stenosis) with 08/01/2023 large left pontine infarct with ADL, amatory, and speech/swallow dysfunction.
Plan
PM&R PT/OT to increase independence with ADLs, improve balance, coordination, endurance, strength, mobility, community reintegration, decreased burden of care on others and family education.
CVA: Secondary prophylaxis with aspirin/Plavix for 21 days through 08/22, followed by aspirin, statin, and blood pressure control (SBP less than 180 and diastolic less than 100 to participate with therapy for ischemic stroke). Continue to monitor
neurologic status.
Right dominant hemiparesis: High risk for falls and sliding out of chair/bed. Safety reinforced.
- Avoid using affected arm to help lift or pull patient as this will cause trauma to the shoulder.
Right Neglect: makes patient at increased risk for falls.� Will need therapy to work on scanning of environment for safe navigation.
Oropharyngeal/esophageal dysphagia: speech evaluation, oral care protocol, chlorhexidine rinse after meals and HS, aspiration precautions.� Advance diet as tolerated.
-Video swallow 08/02: mild oropharyngeal dysphagia and possible esophageal dysphagia with plan for regular diet taking soft/moist foods with thin liquids. Suggestion of a GI consult to assess esophageal stage of swallowing.
Dysarthria: speech evaluation
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
-plan for routine outpatient neurosurgery follow-up.
HTN: losartan 25 mg, monitor closely
HLD: Statin
Non-insulin DM II: Accu-Cheks, metformin, insulin sliding scale.
FEN: Mild increased BUN, encourage hydration
Psych: Psychology consult.� Monitor mood, adjust medications as needed.
Pain: acetaminophen or Valium as needed for chronic neck pain.
Bowel: Colace and Senna, PRN bisacodyl.
Bladder: Time void, PVRs, PRN straight cath.
-Completing 3 days of ceftriaxone 08/03 for strep UTI
GI Prophylaxis: Pantoprazole
DVT Prophylaxis: Mechanical and Lovenox
Pulmonary: Incentive spirometry
Safety: Continue to reinforce assistance with all transfers.
Code Status:� Full code
Dispo (date/plan/equipment needs): Home with family care.
Functional and Medical Goals: Modified Independent with ADL�s, ambulation, transfers
Discharge Destination: Acute inpatient rehabilitation
Summary of recommendations:
- Discharge Destination: Acute inpatient rehabilitation
CVA: Secondary prophylaxis with aspirin/Plavix for 21 days through 08/22, followed by aspirin, statin, and blood pressure control (SBP less than 180 and diastolic less than 100 to participate with therapy for ischemic stroke). Continue to monitor
neurologic status.
Right dominant hemiparesis: High risk for falls and sliding out of chair/bed. Safety reinforced.
- Avoid using affected arm to help lift or pull patient as this will cause trauma to the shoulder.
Right Neglect: makes patient at increased risk for falls.� Will need therapy to work on scanning of environment for safe navigation.
Oropharyngeal/esophageal dysphagia: speech evaluation, oral care protocol, chlorhexidine rinse after meals and HS, aspiration precautions.� Advance diet as tolerated.
-Video swallow 08/02: mild oropharyngeal dysphagia and possible esophageal dysphagia with plan for regular diet taking soft/moist foods with thin liquids. Suggestion of a GI consult to assess esophageal stage of swallowing.
Dysarthria: speech evaluation
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
-plan for routine outpatient neurosurgery follow-up.
Thank you for allowing me to care for your patient. Please contact me with any questions or concerns.
[2023-08-04 12:58] LABS: Glucose - Point of Care 133 mg/dl (70-99)
[2023-08-04] MEDS: NOVOLOG FLEXPEN-LOW RESISTANCE SC ×2 (13:03→16:24)
[2023-08-04] MEDS: STERILE WATER FOR INJECTION 10 ML IV (13:39)
[2023-08-04] MEDS: ROCEPHIN 1000 MG IV (13:39)
--- NOTE | 2023-08-04 16:04 | CM ---
Reviewed the chart notes and spoke with the patient and [id number]. [id number] acted as cotton washer. IMM signed and placed on chart. PMR recommending acute rehab. [facility] checking on beds. CM continues to be available to patient/family
and is monitoring medical plan for needs at discharge.
Plan: Discharge to [facility].
[2023-08-04 16:18] LABS: Glucose - Point of Care 142 mg/dl (70-99)
[2023-08-04] MEDS: LOVENOX 40 MG SC (17:29)
[2023-08-04] MEDS: LIPITOR 80 MG PO (21:49)
[2023-08-04 22:58] LABS: Glucose - Point of Care 255 mg/dl (70-99)
[2023-08-05 00:43] VITALS: BP 146/80
[2023-08-05 03:50] VITALS: BP 177/77
[2023-08-05 07:45] LABS: Glucose - Point of Care 131 mg/dl (70-99)
[2023-08-05] MEDS: NOVOLOG FLEXPEN-LOW RESISTANCE SC (07:51)
[2023-08-05 07:52] VITALS: BP 155/78
[2023-08-05] MEDS: PLAVIX 75 MG PO (08:11)
[2023-08-05] MEDS: COZAAR 25 MG PO (08:11)
[2023-08-05] MEDS: LOW STRENGTH ASPIRIN 81 MG PO (08:11)
[2023-08-05] MEDS: PROTONIX 40 MG PO (08:11)
[2023-08-05] MEDS: GLUCOPHAGE 500 MG PO (08:12)
--- NOTE | 2023-08-05 10:08 | W.PN.HOSP.TC ---
Addendum entered and electronically signed by Reymundo Musa MD 08/05/23 14:13:
updated DIL over the phone in details. Told her to f/u with multiple specialities. Agreed for DC to rehab.
Addendum entered and electronically signed by Reymundo Musa MD 08/05/23 13:27:
Patient with mild orthostatic hypotension which resolved with IV fluid. Will continue with reduced dose of losartan 25 mg and can be uptitrated as outpatient to 50 or 75 mg based on blood pressure.
More than 30 minutes spent in discharge including
Final examination of the patient
Summarizing hospital stay
Instructions for continuing care to all relevant caregivers
Preparation of discharge records, prescriptions, and referral forms
Total time spent (in minutes): 45
Original Note:
Today's Communication/Plan
-
adjust bp meds
PT/OT
Await placement
Assessment / Plan
Assessment / Plan
#Acute Large ischemic CVA left raman
-CT head negative without any acute pathology
-Overnight Stroke alert- CT perfusion studies and CTA negative.
-MRI brain ARGE 2.0 cm ACUTE ISCHEMIC INFARCT in the LEFT RAMAN. Chiari I malformation. Mild diffuse cerebral and cerebellar volume loss.
-Patient already got aspirin 325 mg for presumed stroke, maintain on ASA 81mg/d and plavix added for 21 then asa only.
-LDL elevated. A1C 7.5. started high dose lipitor. Started metformin.
-PT OT -Acute rehab. PM&R consulted .
-VSE study okay for regular diet consistency.
-ECHO noted
-Neurology signed off
#Esophagela dysphagia likely 2/2 CVA
-OP GI follow up
#RUE weakness/decrease sensation likely from CVA vs. chronic cervical stenosis/compression/spondylosis
-MR cervical spine MODERATE to SEVERE SPINAL CORD COMPRESSION and central canal stenosis at C4/C5 secondary to a diffuse disc-osteophyte complex. Severe right and moderate to severe left neural foraminal narrowing at C4/C5.
-Appreciate Neurosurgery recs.
#Strep UTI
-Completed 3d course of rocephin.
#Hypertensive urgency
#Primary HTN-probably undiagnosed
-remains elevated in setting of CVA
-Increase losartan to 50mg.
#HLD
-LDL elevated. increase atorvastatin to 80mg
#NIDDM
- A1C at 7.5
-start metformin 500mg BID
-ada. iss. accuchecks. POC 131
DVTPPX -scds/lovenox
Full code
d/w with spouse at bedside in details.
PT/OT-Acute rehab. PMR consulted. Await placement. CM aware.
Anticipated Discharge: Today
Subjective/Interval History
-
Date of Service: August 05, 2023
States feeling tired and weak this morning
Objective Data
-
Vital Signs:
Vital Signs
Temp Pulse Resp BP Pulse Ox
97.9 F 65 16 155/78 98
08/05/23 07:52 08/05/23 08:11 08/05/23 07:52 08/05/23 08:11 08/05/23 07:52
I&O
08/04/23 08/05/23 08/06/23
06:59 06:59 06:59
Intake Total 480 / 480 840 / 840
Balance 480 / 480 840 / 840
Physical Exam
-
General: Well Developed and No Apparent Distress
HEENT: Normocephalic, Atraumatic and Moist Mucous Membranes
Respiratory: Clear to Auscultation
Cardiac: Regular Rhythm and S1/S2; Negative Murmur, Rub or Gallop
GI: Soft, Nontender, Nondistended and Normal Bowel Sounds; Negative Organomegaly
Rectal: Deferred by Provider
Musculoskeletal: No Clubbing, No Cyanosis, No Edema and Other (TTP for cervical R side musculature. No stepoffs )
Skin: Negative Rash
Neuro: Awake, Alert, Oriented, AO x 3, Nonfocal/Grossly Intact and Other (RUE weakness improving on daily basis and RLE weakness. ); Negative Tremors or Sedated
Psych: Calm
--- NOTE | 2023-08-05 10:28 | CM ---
Reviewed the chart notes. Per Sina Hillman admissions liaison, bed available after 4pm today at [facility].
Call report to: [phone]
Fax report to: [phone]
[2023-08-05] MEDS: NSS 500 IV (11:57)
[2023-08-05 12:01] LABS: Glucose - Point of Care 155 mg/dl (70-99)
[2023-08-05] MEDS: NOVOLOG FLEXPEN-LOW RESISTANCE 1 UNITS SC (12:01)
[2023-08-05 12:03] VITALS: BP 125/79; BP 138/74; BP 152/81; PULSE 70; PULSE 71; PULSE 74
--- NOTE | 2023-08-05 13:28 | W.DCSUMMARY ---
Discharge Summary
Discharge Data
Date of Admission: 08/01/23
Date of Discharge: 08/05/23
-
Pending Results: No
Hospital Course
67-year female past medical history of hyperlipidemia, was presenting from home with right-sided weakness. Patient underwent CT of the head was negative for acute pathology. Patient perfusion study was negative. Patient underwent MRI of the brain
LARGE 2.0 cm ACUTE ISCHEMIC INFARCT in the LEFT RAMAN. Chiari I malformation. Mild diffuse cerebral and cerebellar volume loss. Patient cholesterol is high with starting high-dose statin. Also was found to have a new onset of diabetes. Patient was
started on metformin. Patient also with hypertensive urgency on admission was started on losartan. Patient also with cervical MRI. MR cervical spine MODERATE to SEVERE SPINAL CORD COMPRESSION and central canal stenosis at C4/C5 secondary to a
diffuse disc-osteophyte complex. Severe right and moderate to severe left neural foraminal narrowing at C4/C5. Neurosurgery evaluated patient recommend outpatient follow-up. Patient went speech evaluation and with esophageal dysphagia and stated
to [id number] the patient is to follow-up outpatient with gastroenterology. Patient was eval by PT and OT. Patient had a strep UTI and treated with antibiotics. Patient will be discharged to most acute rehab. Patient [id number] was
updated about complete hospitalization and to follow-up with primary doctor, neurology, neurosurgery and gastroenterology. All questions were answered to her satisfaction.
Discharge Plan
-
Patient Disposition: Acute Rehab Facility
Discharge Diagnosis/Procedures: Acute large ischemic CVA
Cervical dysphagia
Right upper extremity
Cervical spondylolysis
Strep UTI
Hypertensive urgency
Diabetes mellitus
Hyperlipidemia
Condition: Fair
Diet: Low Cholesterol and Diabetic, Carb Controlled
Activity: With assistance and As tolerated
Driving Restrictions: Not until seen by your Dr
Other Services: ST
Activity Restrictions/Additional Instructions:
Consider seeing milk inspector to further assess esophageal stage of swallowing.
Follow-up with primary doctor for further diabetes and blood pressure management.
Referrals:
Heber Mayer MD [Active] - in one to two months
Linda Flower MD [Active] - None (f/u for further assess esophageal stage of swallowing.)
Cherie Valladares MD [Active] - None (f/u cervical spondylolysis)
UNKNOWN - PT DOES,NOT KNOW [Family Provider] - in less than 1 week
Prescriptions:
New
metformin 500 mg Tablet
500 mg PO BID@0800,1700 30 Days Qty: 60 0RF
atorvastatin 80 mg Tablet
80 mg PO HS 30 Days Qty: 30 0RF
clopidogrel 75 mg Tablet
75 mg PO DAILY 18 Days Qty: 18 0RF
pantoprazole 40 mg Tablet,Delayed Release (Dr/Ec)
40 mg PO DAILY 30 Days Qty: 30 0RF
aspirin [Children's Aspirin] 81 mg Tablet,Chewable
81 mg PO DAILY 30 Days Qty: 30 0RF
losartan 25 mg Tablet
25 mg PO DAILY 30 Days Qty: 30 0RF
Continued
omeprazole 40 mg capsule,delayed release(DR/EC)
40 mg PO DAILY PRN (Reason: reflux)
acetaminophen [8 Hour Pain Reliever] 650 mg tablet extended release
650 mg PO Q8H PRN (Reason: mild pain)
baclofen 10 mg tablet
10 mg PO Q8H PRN (Reason: mild pain)
fluticasone propionate 50 mcg/actuation spray,suspension
1 spray INTRANASAL BID
Discontinued
meloxicam 15 mg tablet
15 mg PO DAILY
Discharge Orders:
Discharge Patient (As Directed); Ordered 08/05/23
Ordered By: Reymundo Musa
Discharge Date and Time
Discharge Date/Time: 08/05/23 16:27
[2023-08-05 15:47] VITALS: BP 154/77
--- NOTE | 2023-08-05 15:59 | PTCARENOTE ---
report called to [facility] to number [phone]. Iv site from AC removed and pt to be transferred via wheelchair.
== END 2023-08-05 16:27 | DRG 64 ==
LOC: 2 NORTH 10:56
PROVIDERS: Nurse Practitioner Family; ADMITTING PHYSICIAN Hospitalist; ATTENDING PHYSICIAN Hospitalist; CONSULT PHYSICIAN Physical Medicine & Rehabilitation; CONSULT PHYSICIAN Psychiatry & Neurology Neurology; EMERGENCY PHYSICIAN Emergency Medicine; OTHER PHYSICIAN Neurological Surgery
DX: I63.29 Cerebral infarction due to unspecified occlusion or stenosis of other precerebral arteries (principal); G93.5 Compression of brain; N39.0 Urinary tract infection, site not specified; G43.109 Migraine with aura, not intractable, without status migrainosus; I10 Essential (primary) hypertension; I16.0 Hypertensive urgency; E78.00 Pure hypercholesterolemia, unspecified; E11.9 Type 2 diabetes mellitus without complications; M48.02 Spinal stenosis, cervical region; R27.0 Ataxia, unspecified; K21.9 Gastro-esophageal reflux disease without esophagitis; B95.5 Unspecified streptococcus as the cause of diseases classified elsewhere; I95.1 Orthostatic hypotension
CPT/HCPCS: 0042T; 70450; 70496; 70498; 70551; 71045; 72141; 74230; 80048; 80053; 80061; 81003; 81015; 82607; 82728; 82746; 82962; 83036; 83735; 84443; 84484; 85025; 85027; 85610; 85652; 85730; 87077; 87086; 92526; 92610; 92611; 93005; 93306; 97112; 97116; 97163; 97167; 97530; 97535; 99285; Q9967

== ENCOUNTER → 2023-11-29 08:30 | Outpatient (REF) | payer MEDICARE, SELFPAY | LOC: RAD 08:30 | PROVIDERS: ATTENDING PHYSICIAN Internal Medicine | DX: M25.511 Pain in right shoulder (principal) | CPT/HCPCS: 73030 ==